=== PATIENT | male | born 1940 | race Caucasian/White ===

== ENCOUNTER 2016-09-23 20:37 | Emergency (ER) | payer OTHER ==
[2016-09-23 20:46] VITALS: RESP 16
--- NOTE | 2016-09-23 20:58 | CPEKG ---
Heart Rate: 70 RR Interval: 857 P-R Interval: 180 QRSD Interval: 94 QT Interval: 416 QTC Interval: 449 P Bridgeton: 16 QRS Bridgeton: -7 T Wave Bridgeton: 21 EKG Severity - NORMAL ECG - EKG Impression: SINUS RHYTHM Electronically Signed By: Nam Sebastian 23-Sep-2016 21:26:11
[2016-09-23] MEDS ORDERED: DEXAMETHASONE 10 MG/ML VIAL IVP ONE (21:22)
[2016-09-23] MEDS ORDERED: METOCLOPRAMIDE 10 MG/2 ML VIAL IVP ONE (21:22)
[2016-09-23] MEDS ORDERED: HYDROmorphONE/DILAUDID 1 MG/ML SYR IVP ONE (21:22)
[2016-09-23] MEDS ORDERED: NS 1,000 ML IV ONE (21:22)
[2016-09-23] MEDS ORDERED: MECLIZINE HCL 25 MG TAB PO ONE (21:23)
--- NOTE | 2016-09-23 21:25 | EDPHY ---
H & P Stated Complaint: ARAIZA and dizzy X 8 hours Source: Patient Exam Limitations: No limitations - Personal History Current Tetanus/Diphtheria Vaccine: Yes Current Tetanus Diphtheria and Acellular Pertussis (TDAP): Yes Tetanus Vaccine Date: < 10 YEARS - Medical/Surgical History Hx Asthma: No Hx Chronic Respiratory Disease: No Hx Diabetes: No Hx Cardiac Disease: No Hx Renal Disease: No Hx Cirrhosis: No Hx Alcoholism: No Hx HIV/AIDS: No Hx Splenectomy or Spleen Trauma: No Other PMH: DIVERTICULITITS, back surgery, HTN - Family History Significant Family History: No pertinent family hx - Social History Smoking Status: Former smoker Alcohol Use: Sober Drug Use: None Time Seen by Provider: 09/23/16 21:14 HPI/ROS: CHIEF COMPLAINT: Headache, vertigo HISTORY OF PRESENT ILLNESS: The patient is a 76-year-old man with a history of prostate cancer remotely who comes to the emergency department complaining of a headache and vertigo that began this morning after going to the bathroom. It has been constant throughout the day and mild. He states that it is 4/10. He has some photophobia. He does not frequently have headaches and he has never had migraines. He does not have any focal weakness or numbness. His states that he does have imbalance with ambulating. He does not have difficulty with cerebellar exam in bed. No GI symptoms. No chest pain. No shortness of breath. He denies any recent trauma. No fevers or recent infections. No history of stroke. REVIEW OF SYSTEMS: Constitutional: denies: chills, fever, recent illness, recent injury EENTM: denies: blurred vision, double vision, nose congestion Respiratory: denies: cough, shortness of breath Cardiac: denies: chest pain, irregular heart rate, lightheadedness, palpitations Gastrointestinal/Abdominal: denies: abdominal pain, diarrhea, nausea, vomiting, blood streaked stools Genitourinary: denies: dysuria, frequency, hematuria, pain Musculoskeletal: denies: joint pain, muscle pain Skin: denies: lesions, rash, jaundice, bruising Neurological: See HPI denies: numbness, paresthesia, tingling, weakness Hematologic/Lymphatic: denies: blood clots, easy bleeding, easy bruising Immunologic/allergic: denies: HIV/AIDS, transplant EXAM: GENERAL: Well-appearing, well-nourished and in no acute distress. HEAD: Atraumatic, normocephalic. EYES: Nystagmus with fast component to the right, Pupils equal round and reactive to light, extraocular movements intact, sclera anicteric, conjunctiva are normal. ENT: TMs normal, nares patent, oropharynx clear without exudates. Moist mucous membranes. NECK: Normal range of motion, supple without lymphadenopathy or JVD. LUNGS: Breath sounds clear to auscultation bilaterally and equal. No wheezes rales or rhonchi. HEART: Regular rate and rhythm without murmurs, rubs or gallops. ABDOMEN: Soft, nontender, normoactive bowel sounds. No guarding, no rebound. No masses appreciated. BACK: No CVA tenderness, no spinal tenderness, step-offs or deformities EXTREMITIES: Normal range of motion, no pitting or edema. No clubbing or cyanosis. NEUROLOGICAL: Cranial nerves II through XII grossly intact. Normal speech, normal gait. 5/5 strength, normal movement in all extremities, normal sensation , vertigo at baseline, does not fatigue. Normal cerebellar exam, normal reflexes PSYCH: Normal mood, normal affect. SKIN: Warm, dry, normal turgor, no visible rashes or lesions. (Nam Sebastian) Constitutional: Initial Vital Signs Temperature (C) 36.3 C 09/23/16 20:43 Heart Rate 73 09/23/16 20:43 Respiratory Rate 16 09/23/16 20:43 Blood Pressure 141/100 H 09/23/16 20:43 O2 Sat (%) 95 09/23/16 20:43 O2 Delivery Mode Room Air Allergies/Adverse Reactions: No Known Allergies Allergy (Verified 09/23/16 20:43) Home Medications: Medication Instructions Recorded Amlodipine 02/28/15 Asa 02/28/15 Hctz 02/28/15 Simvastatin 02/28/15 Medical Decision Making - Diagnostics EKG Interpretation: An EKG obtained and was read and documented in trace view. Please see trace view for full reading and report. Sinus rhythm, no acute ischemic changes ( Nam Sebastian) ED Course/Re-evaluation: 2:00 a.m.- I received sign-out on this patient from Dr. Sebastian at approximately 11:45 p.m.. The patient has been stable throughout my shift. MRI was performed and was generally negative for any central cause of vertigo such as posterior circulation ischemia or mass. We plan to discharge the patient. One of our technicians walked him through the department and he walks with a steady gait. He is anxious to go home and will be discharged. I have given him instructions to drink plenty of fluids. (Yessica Beatty) 10:43 p.m. the patient's headache is gone but he has persistent vertigo. He continues to have nystagmus that does not fatigue. I will order an MRI to evaluate further. (Nam Sebastian) Differential Diagnosis: Partial list of the Differential diagnosis considered include but were not limited to; benign peripheral vertigo, central vertigo, ischemia and although unlikely based on the history and physical exam, I also considered infection trauma, tumor. (Nam Sebastian) - Data Points Laboratory Results: Laboratory Results 09/23/16 21:24 09/23/16 21:24 Medications Given: Discontinued Medications Dexamethasone (Decadron Injection) 10 mg IVP EDNOW ONE Stop: 09/23/16 21:23 Last Admin: 09/23/16 21:40 Dose: 10 mg Hydromorphone HCl (Dilaudid) 0.5 mg IVP EDNOW ONE Stop: 09/23/16 21:23 Last Admin: 09/23/16 21:40 Dose: 0.5 mg Sodium Chloride (Ns) 1,000 mls @ 0 mls/hr IV ONCE ONE PRN Reason: Wide Open Stop: 09/23/16 21:23 Last Admin: 09/23/16 21:40 Dose: 1,000 mls Meclizine HCl (Meclizine Hcl) 50 mg PO EDNOW ONE Stop: 09/23/16 21:24 Last Admin: 09/23/16 21:40 Dose: 50 mg Metoclopramide HCl (Reglan Injection) 10 mg IVP EDNOW ONE Stop: 09/23/16 21:23 Last Admin: 09/23/16 21:40 Dose: 10 mg Departure - Departure Disposition: Home, Routine, Self-Care Clinical Impression: Peripheral vertigo Qualifiers: Laterality: right Qualified Code(s): H81.391 - Other peripheral vertigo, right ear Condition: Good Instructions: Vertigo (ED) Additional Instructions: Please make sure to drink plenty of fluids and get rest. You can take meclizine or Benadryl as needed for the dizziness. These are available over-the -counter. Please return to the emergency room if your worse in any way. Referrals: UNKNOWN,PCP [Other] - As per Instructions
[2016-09-23 21:28] LABS: % IMMATURE GRANULYOCYTES 0.2 % (0.0-1.1); ABSOLUTE IMMATURE GRANULOCYTES 0.02 10^3/uL (0.00-0.10); ADD DIFF? NO; ADD MORPH? NO; ADD SCAN? NO; ATYPICAL LYMPHOCYTE FLAG 0 (0-99); FRAGMENT RBC FLAG 0 (0-99); HEMATOCRIT 47.5 % (40.0-51.0); LEFT SHIFT FLG 0 (0-99); LIPEMIA HEMOLYSIS FLAG 80 (0-99); MEAN CELL HEMOGLOBIN 30.3 pg (27.9-34.1); MEAN CELL HEMOGLOBIN CONCENTR. 33.7 g/dL (32.4-36.7); MEAN PLATELET VOLUME 10.1 fL (8.7-11.7); PLATELET CLUMPS FLAG 0 (0-99); PLATELET COUNT 233 10^3/uL (150-400); RED BLOOD CELL COUNT 5.28 10^6/uL (4.40-6.38); RED CELL DISTRIBUTION WIDTH 13.3 % (11.5-15.2)
[2016-09-23 21:37] LABS: ANION GAP 12 mEq/L (8-16); CALCIUM 9.7 mg/dL (8.5-10.4); CARBON DIOXIDE 23 mEq/l (22-31); CHLORIDE 102 mEq/L (97-110); GLOMERULAR FILTRATION RATE > 60; GLUCOSE 120 mg/dL (70-100); SODIUM 137 mEq/L (134-144)
[2016-09-23 23:14] VITALS: O2SAT 91
[2016-09-23] MEDS ORDERED: GADOBUTROL 10 ML VIAL IVP ONE (23:32)
[2016-09-24 02:40] VITALS: BP 125/83; PULSE 73; TEMP 97.9
== END 2016-09-24 02:40 | disposition home or self-care (01) ==
DX: H81.391 Other peripheral vertigo, right ear (principal); I10 Essential (primary) hypertension; Z87.891 Personal history of nicotine dependence
CPT/HCPCS: 70450; 70544; 70548; 70553; 93005; 96361; 96374; 96375; 99285; A9585; J1170; J2765

== ENCOUNTER → 2017-06-04 | Outpatient (CLI) | payer OTHER | LOC: FIMAGING 12:19 | PROVIDERS: ATTEND Internal Medicine | DX: K57.30 Diverticulosis of large intestine without perforation or abscess without bleeding (principal); K76.0 Fatty (change of) liver, not elsewhere classified; K44.9 Diaphragmatic hernia without obstruction or gangrene; N28.1 Cyst of kidney, acquired; K80.20 Calculus of gallbladder without cholecystitis without obstruction ==

== ENCOUNTER 2017-09-08 15:44 | Emergency (ER) | payer OTHER ==
[2017-09-08 15:49] VITALS: BP 140/76
[2017-09-08] MEDS ORDERED: TDAP ADULT 0.5 ML INJ (BOOSTRIX) IM ONE (16:16)
--- NOTE | 2017-09-08 16:17 | EDPHY ---
H & P Smoking Status: Former smoker Time Seen by Provider: 09/08/17 16:11 HPI/ROS: HPI Left arm laceration. 77-year-old male by private vehicle with his . This patient was using an angle terrazzo grinder when it popped out of his hand glanced against his left mid dorsal forearm causing a laceration. He denies any loss of sensation or weakness distal to this wound. He does not recall the last time he had a tetanus shot. He has no other complaints. ROS: Constitutional: No fever, no chills. No weakness. Musculoskeletal: No back pain. No neck pain. As above. Skin: No rashes. As above. Neurological: No focal weakness or altered sensation. Past medical history: Diverticulitis, back surgery, hypertension. Social history: Nonsmoker. Here with his . Social alcohol. Physical Exam: General Appearance: Alert, no distress. This patient is responding to questions appropriately and in full sentences. This patient appears well- hydrated and well-nourished. Eyes: Pupils equal and round no pallor or injection. No lid edema, erythema or injection. Left upper extremity exam: Significant for a 4 cm full-thickness laceration which is linear and to the fascia but does not appear to breach the fascia mid dorsal forearm. Extensor function is intact at the wrist and all digits of left upper extremity. Left upper extremity is neurovascularly intact. Please see wound care note for further details. Neurological: Motor sensory function is grossly intact. Cranial nerves are normal. Gait is normal. Skin: Warm and dry, no rashes. As above. Extremities are symmetrical. All joints range without pain or impingement. Psychiatric: No agitation. No depression. Database: EKG: Imaging: Procedures: Emergency department course: Vital signs reviewed. Patient given a Boostrix tetanus shot. Please see wound care note by physician assisted living assistant Liss Ralph. Wound care discussed with the patient. Follow-up and return to emergency department precautions reviewed. All of his questions were answered. He was discharged home in good condition with his . Differential Diagnosis: The differential diagnosis on this patient includes but is not limited to laceration to the left mid forearm. Tendon laceration, significant neurovascular injury, retained foreign body unlikely. This represents a partial list of diagnoses considered. These considerations are based on history , physical exam, past history, reassessment and diagnostic testing. (McCollester ,Debby B) Constitutional: Initial Vital Signs Temperature (C) 36.7 C 09/08/17 15:46 Heart Rate 87 09/08/17 15:46 Respiratory Rate 18 09/08/17 15:46 Blood Pressure 140/76 H 09/08/17 15:46 O2 Sat (%) 95 09/08/17 15:46 O2 Delivery Mode Room Air Allergies/Adverse Reactions: No Known Allergies Allergy (Verified 09/08/17 15:46) Home Medications: Medication Instructions Recorded Amlodipine 02/28/15 Asa 02/28/15 Hctz 02/28/15 Simvastatin 02/28/15 Medical Decision Making Procedures: I was asked by Dr. Debby Longo to repair left forearm laceration. Laceration repair. Verbal consent was obtained from the patient. The 4 cm laceration on the left forearm was anesthetized using 1% lidocaine with epinephrine. The wound was irrigated with saline, draped and explored to its base with a gloved finger. There were no deep structures involved. No tendon injury was identified. The wound was repaired with 4 0 Ethilon, 9 sutures. The wound repair was complex. The procedure was performed by myself. (Liss Medellin) - Data Points Medications Given: Discontinued Medications Diphtheria/Tetanus/Acell Pertussis (Boostrix) 0.5 ml IM .ONCE ONE Stop: 09/08/17 16:17 Last Admin: 09/08/17 16:23 Dose: 0.5 ml Departure - Departure Disposition: Home, Routine, Self-Care Clinical Impression: Laceration of left forearm Qualifiers: Encounter type: initial encounter Qualified Code(s): S51.812A - Laceration without foreign body of left forearm, initial encounter Condition: Good Instructions: Laceration (ED) Additional Instructions: Read and follow provided instructions. Sutures are to be removed in 12 days. Follow-up with your primary care physician in 2-3 days for re-evaluation and wound check. Ibuprofen dosin mg every 6 hours with meals for the next 3 days only. Take only as needed for pain. Return to the emergency department for worsening pain, discoloration, redness, drainage of pus, fever or other serious concerns. Referrals: NONE *PRIMARY CARE P,. [Primary Care Provider] - As per Instructions
== END 2017-09-08 16:50 | disposition home or self-care (01) ==
PROC: 0HQEXZZ Repair Left Lower Arm Skin, External Approach (ICD-10-PCS; principal; 2017-09-08)
DX: S51.812A Laceration without foreign body of left forearm, initial encounter (principal); I10 Essential (primary) hypertension; Z23 Encounter for immunization; W31.2XXA Contact with powered woodworking and forming machines, initial encounter; Y99.8 Other external cause status; Y93.89 Activity, other specified

== ENCOUNTER 2018-05-03 14:35 | Inpatient (IN) | payer OTHER ==
[2018-05-03] MEDS ORDERED: KETOROLAC 15 MG/1 ML SDV IVP ONE (14:56)
[2018-05-03] MEDS ORDERED: DEXAMETHASONE 4 MG/ML VIAL IVP ONE (14:56)
[2018-05-03] MEDS ORDERED: DIAZEPAM 5 MG/ML 1 ML SYR IVP ONE (14:56)
--- NOTE | 2018-05-03 15:03 | EDPHY ---
H & P Stated Complaint: Right sided back pain radiation to R buttock and R thigh Time Seen by Provider: 05/03/18 14:45 HPI/ROS: CHIEF COMPLAINT: Low back pain HISTORY OF PRESENT ILLNESS: Patient is a 77-year-old man with a history of chronic low back pain. He had a diskectomy laminectomy of L2-4, 20 years ago and 10 years ago had a left-sided lumbar nerve block by interventional Radiology. He states that his pain has been generally controlled until the last 2 weeks when he has had mild low back pain like a "band across the lower part of his back". Then today after walking to and from the bathroom he states the pain suddenly changed and went from a level of 2 to level of 9 and is radiating down his right gluteus area and right lateral thigh. It does not radiate below his knee. No weakness or numbness. he denies bowel or bladder abnormalities. He has been taking Advil and Flexeril at home at night without significant relief. Severity: Severe Modifying factors: Worsened by movement twisting or bending. Not worsened by weight-bearing REVIEW OF SYSTEMS: Constitutional: denies: chills, fever, recent illness, recent injury EENTM: denies: blurred vision, double vision, nose congestion Respiratory: denies: cough, shortness of breath Cardiac: denies: chest pain, irregular heart rate, lightheadedness, palpitations Gastrointestinal/Abdominal: denies: abdominal pain, diarrhea, nausea, vomiting, blood streaked stools Genitourinary: denies: dysuria, frequency, hematuria, pain Musculoskeletal: See HPI Skin: denies: lesions, rash, jaundice, bruising Neurological: denies: headache, numbness, paresthesia, tingling, dizziness, weakness Hematologic/Lymphatic: denies: blood clots, easy bleeding, easy bruising Immunologic/allergic: denies: HIV/AIDS, transplant 10 systems reviewed and negative except as noted EXAM: GENERAL: Well-appearing, well-nourished and in no acute distress. HEAD: Atraumatic, normocephalic. EYES: Pupils equal round and reactive to light, extraocular movements intact, sclera anicteric, conjunctiva are normal. ENT: TMs normal, nares patent, oropharynx clear without exudates. Moist mucous membranes. NECK: Normal range of motion, supple without lymphadenopathy or JVD. LUNGS: Breath sounds clear to auscultation bilaterally and equal. No wheezes rales or rhonchi. HEART: Regular rate and rhythm without murmurs, rubs or gallops. ABDOMEN: Soft, nontender, normoactive bowel sounds. No guarding, no rebound. No masses appreciated. BACK: Mid low back pain radiating to the right gluteus and right lateral thigh. No tenderness. Pain with movement or twisting. EXTREMITIES: Normal range of motion, no pitting or edema. No clubbing or cyanosis. NEUROLOGICAL: Cranial nerves II through XII grossly intact. Normal speech, can ambulate but with pain. 5/5 strength in been, normal movement in all extremities but with pain with movement of the right leg, normal sensation, normal reflexes PSYCH: Normal mood, normal affect. SKIN: Warm, dry, normal turgor, no visible rashes or lesions. Source: Patient, EMS Exam Limitations: No limitations - Personal History Current Tetanus Diphtheria and Acellular Pertussis (TDAP): No Tetanus Vaccine Date: < 10 YEARS - Medical/Surgical History Hx Asthma: No Hx Chronic Respiratory Disease: No Hx Diabetes: No Hx Cardiac Disease: Yes Hx Renal Disease: No Hx Cirrhosis: No Hx Alcoholism: No Hx HIV/AIDS: No Hx Splenectomy or Spleen Trauma: No Other PMH: DIVERTICULITITS, L2-3 for laminectomy and diskectomy, HTN - Family History Significant Family History: No pertinent family hx - Social History Smoking Status: Former smoker Alcohol Use: Sober Drug Use: None Constitutional: Initial Vital Signs Heart Rate 81 05/03/18 14:39 Respiratory Rate 18 05/03/18 14:39 O2 Sat (%) 94 05/03/18 14:39 O2 Delivery Mode Nasal Cannula Allergies/Adverse Reactions: No Known Allergies Allergy (Verified 05/03/18 14:43) Home Medications: Medication Instructions Recorded Albuterol [Proventil Inhaler HFA 1 - 2 puffs IH Q4HRS PRN 05/03/18 (*)] Aspirin EC [Aspirin EC 81 mg (*)] 81 mg PO HS 05/03/18 Cholecalciferol (Vitamin D3) 2,000 unit PO DAILY 05/03/18 [Vitamin D3] Cyclobenzaprine [Cyclobenzaprine 5 mg PO HS 05/03/18 HCl] Herbals/Supplements -Info Only 1 ea PO DAILY 05/03/18 Hydrochlorothiazide [HCTZ (*)] 25 mg PO DAILY 05/03/18 Ibuprofen [Motrin (*)] 400 mg PO BID 05/03/18 Multivitamins [Multivitamin (*)] 1 each PO DAILY 05/03/18 Holland-3 Fatty Acids [Fish Oil 1000 1,000 mg PO DAILY 05/03/18 mg (*)] Simvastatin 40 mg PO HS 05/03/18 Ubidecarenone [Co Q-10 200 mg] 200 mg PO DAILY 05/03/18 Vitamin B Complex [Vitamin B 1 each PO DAILY 05/03/18 Complex (OTC)] amLODIPine BESYLATE [Amlodipine 10 mg PO DAILY 05/03/18 Besylate] Medical Decision Making - Diagnostics Imaging Results: Imaging Impressions Lumbar Spine MRI 05/03/18 15:32 Impression: 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 The level of most severe central spinal canal narrowing is at L3-L4. Please see detailed description by level above. Results called and discussed with Dr. Nam Sebastian on May 03, 2018 at 1637 hours. Imaging: Discussed imaging studies w/ weight caller Radiologist ED Course/Re-evaluation: We discussed our no narcotic policy in the setting of chronic nontraumatic pain upfront as well as our policy surrounding emergent MRIs. The patient does not have any focal weakness or numbness incontinence or focal deficits. The patient and his were of course frustrated. He expected both of these things when he came to the ER. 3:30 p.m. the patient is very angry about not receiving narcotics and about not being able to receive an MRI. We discussed other options. Ultimately agreed to try to obtain an MRI on this Saturday afternoon because the patient's pain is severely worsened today. Patient asked to be given general anesthesia for the MRI. I told him that this is not a possibility. 4:40 p.m. we discussed the patient's MRI. Despite multiple medications his pain is not controlled at all. I will began to give him narcotics and recommended admission to the hospital for pain control. He is not able to sit up in bed or get out of bed. 4:45 p.m. I discussed the case with Dr. Sapp who will admit. Differential Diagnosis: Partial list of the Differential diagnosis considered include but were not limited to; radiculopathy, muscle strain, degenerative disc disease and although unlikely based on the history and physical exam, I also considered cauda equina, infection, fracture. - Data Points Medications Given: Acetaminophen (Tylenol) 1,000 mg PO Q8H [facility] Stop: 10/30/18 18:14 Last Admin: 05/03/18 18:42 Dose: 1,000 mg Miscellaneous Medication (Icy Hot Lidocaine/Menthol 4%/1% Patch) 1 patch TD DAILY TOBIAS Stop: 10/30/18 17:59 Last Admin: 05/03/18 18:43 Dose: Not Given Discontinued Medications Dexamethasone (Decadron Injection) 8 mg IVP EDNOW ONE Stop: 05/03/18 14:57 Last Admin: 05/03/18 15:18 Dose: 8 mg Diazepam (Valium) 5 mg IVP EDNOW ONE Stop: 05/03/18 14:57 Last Admin: 05/03/18 15:13 Dose: 5 mg Gabapentin (Neurontin) 600 mg PO EDNOW ONE Stop: 05/03/18 15:35 Last Admin: 05/03/18 15:40 Dose: 600 mg Haloperidol Lactate (Haldol Injection) 5 mg IVP EDNOW ONE Stop: 05/03/18 15:35 Last Admin: 05/03/18 15:40 Dose: 5 mg Hydromorphone HCl (Dilaudid) 1 mg IVP EDNOW ONE Stop: 05/03/18 16:41 Last Admin: 05/03/18 16:44 Dose: 1 mg Ketamine HCl (Ketamine) 15 mg IVP EDNOW ONE Stop: 05/03/18 14:57 Last Admin: 05/03/18 15:35 Dose: 15 mg Ketamine HCl (Ketamine) 15 mg IVP EDNOW ONE Stop: 05/03/18 15:33 Last Admin: 05/03/18 15:43 Dose: Not Given Ketorolac Tromethamine (Toradol) 15 mg IVP EDNOW ONE Stop: 05/03/18 14:57 Last Admin: 05/03/18 15:18 Dose: 15 mg Departure - Departure Disposition: [facility] Clinical Impression: Intractable back pain Low back pain Qualifiers: Chronicity: unspecified Back pain laterality: right Sciatica presence: unspecified whether sciatica present Qualified Code(s): M54.5 - Low back pain Condition: Fair
[2018-05-03] MEDS: KETAMINE 200 MG/20 ML VIAL IVP ONE ×2 (15:14→15:35)
[2018-05-03] MEDS ORDERED: KETAMINE 500 MG/10 ML VIAL IVP ONE (15:32)
[2018-05-03] MEDS ORDERED: HALOPERIDOL LACT 5 MG/ML INJ IVP ONE (15:34)
[2018-05-03] MEDS ORDERED: GABAPENTIN 300 MG CAP PO ONE (15:34)
[2018-05-03] MEDS ORDERED: HYDROmorphONE/DILAUDID 2 MG/ML INJ IVP ONE (16:40)
[2018-05-03] MEDS ORDERED: ONDANSETRON DISINTEGRATING 4 MG TAB PO PRN (17:05)
[2018-05-03] MEDS ORDERED: ACETAMINOPHEN 325 MG TAB PO PRN (17:05)
[2018-05-03] MEDS ORDERED: ONDANSETRON 4 MG/2 ML VIAL IVP PRN (17:05)
[2018-05-03] MEDS ORDERED: ALBUTEROL 60 PUFFS/8 GM MDI IH PRN (17:29)
--- NOTE | 2018-05-03 17:37 | PDGENHP ---
<Nalini Felder - Last Filed: 05/03/18 17:59> History and Physical - Chief Complaint intractable back pain - History of Present Illness 77 y/o male with chronic lower back pain presents to the emergency room with intractable back pain. Onset was 2 weeks ago when he bent over to tie his shoe. 4 days ago, he began to take 2 tablets of Advil BID and Flexeril 5 mg HS with no relief. This morning as he was walking to and from the bathroom, the pain became so severe he needed to come to the emergency room. Pain is located right gluteus region and radiates to lateral right thigh. Moving aggravates it. Denies numbness, tingling, difficulty urinating or having bowel movements. No chest pains or shortness of breath. No nausea, vomiting or dizziness. 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 The most severe central spinal canal narrowing is at L3-L4. He was given multiple medications in the ED in attempt to alleviate his pain: dexamethasone, valium, gabapentin, haldol, dilaudid, and ketamine. After receiving those medications, he reports his pain is 7/10. He is being admitted for pain control and management. Past Medical/Surgical History 1. Diskectomy laminectomy of L2 (~1996) 2. Left-sided lumbar nerve block by interventional radiology (~2007) 3. Basal cell carcinoma (2011), MO[facility] 4. BPPV 5. CAD 6. DJD 7. Hyperlipidemia 8. Hypertension 9. Mild intermittent asthma 10. Nocturnal hypoxia 11. Prostate cancer s/p RP salvage radiation (~2011) 12. Tonsillectomy Social 1. Marries, lives with his Belkys 2. Former smoker. No illicit drug use. Rarely drinks alcohol History Information - Allergies/Home Medication List Allergies/Adverse Reactions: No Known Allergies Allergy (Verified 05/03/18 14:43) Home Medications: Albuterol [Proventil Inhaler HFA (*)] 1 - 2 puffs IH Q4HRS PRN 05/03/18 [Last Taken 05/03/18] Aspirin EC [Aspirin EC 81 mg (*)] 81 mg PO HS 05/03/18 [Last Taken 04/28/18] Cholecalciferol (Vitamin D3) [Vitamin D3] 2,000 unit PO DAILY 05/03/18 [Last Taken 04/30/18] Cyclobenzaprine [Cyclobenzaprine HCl] 5 mg PO HS 05/03/18 [Last Taken 05/02/18] Herbals/Supplements -Info Only 1 ea PO DAILY 05/03/18 [Last Taken Unknown] Hydrochlorothiazide [HCTZ (*)] 25 mg PO DAILY 05/03/18 [Last Taken 05/03/18] Ibuprofen [Motrin (*)] 400 mg PO BID 05/03/18 [Last Taken 05/03/18] Multivitamins [Multivitamin (*)] 1 each PO DAILY 05/03/18 [Last Taken 04/30/18] Ashuelot-3 Fatty Acids [Fish Oil 1000 mg (*)] 1,000 mg PO DAILY 05/03/18 [Last Taken 04/30/18] Simvastatin 40 mg PO HS 05/03/18 [Last Taken 05/02/18] Ubidecarenone [Co Q-10 200 mg] 200 mg PO DAILY 05/03/18 [Last Taken 04/30/18] Vitamin B Complex [Vitamin B Complex (OTC)] 1 each PO DAILY 05/03/18 [Last Taken 04/30/18] amLODIPine BESYLATE [Amlodipine Besylate] 10 mg PO DAILY 05/03/18 [Last Taken ] I have personally reviewed and updated: family history, medical history, social history, surgical history Past Medical History: See HPI list - Surgical History Additional surgical history: See HPI list - Family History Additional family history: Brother: DVT, Father with CAD and prostate CA, Mother with diabetes - Social History Smoking Status: Former smoker Alcohol Use: Rarely Drug Use: None Review of Systems Review of Systems: ROS: 10pt was reviewed & negative except for what was stated in HPI & below Constitutional: Reports: no symptoms EENMT: Reports: no symptoms Cardiac: Reports: no symptoms Respiratory: Reports: no symptoms Gastrointestinal: Reports: no symptoms Genitourinary: Reports: no symptoms Muscolosketal: Reports: back pain Skin: Reports: no symptoms Neurological: Reports: no symptoms Hematologic/Lymphatic: Reports: no symptoms Immunologic/Allergy: Reports: no symptoms Physical Exam Physical Exam: Imaging reviewed Temp Pulse Resp BP Pulse Ox 78 14 127/105 H 93 05/03/18 17:25 05/03/18 17:25 05/03/18 17:25 05/03/18 17:25 O2 (L/minute) 2 Constitutional: obese, uncomfortable Eyes: PERRL, anicteric sclera, EOMI Ears, Nose, Mouth, Throat: ears appear normal, no oral mucosal ulcers, dry mucous membranes, hard of hearing Cardiovascular: regular rate and rhythym, no murmur, rub, or gallop, No edema Peripheral Pulses: 2+: dorsalis-pedis (R) (Radial 2+), dorsalis-pedis (L) ( Radial 2+) Respiratory: no respiratory distress, no rales or rhonchi, clear to auscultation Gastrointestinal: normoactive bowel sounds, soft, non-tender abdomen Genitourinary: no bladder fullness, no bladder tenderness Skin: warm, normal color, no rashes or abrasions, no fluctuance, no induration, No mottled Musculoskeletal: other (BUE motor strength 5/5, refused testing of BLE) Neurologic: AAOx3, sensation intact bilaterally, CN II-XII Intact Psychiatric: interacting appropriately, not anxious, not encephalopathic, thought process linear Lymph, Heme, Immunologic: no cervical LAD, no supraclavicular LAD Assessment & Plan Plan: This is a 77 y/o male with history of chronic lower back pain who received back surgery approximately 20 years ago and a nerve block approximately 10 years ago. From then until now, he has been able to tolerate his back discomfort. Unfortunately, today was intense pain and he sought medical assistance for this intractable pain. 1. Lumbar radiculopathy -Conservative measures with hot/ice packs, positioning, pillows -Pain PO/IVP PRN; basic labwork pending to assess renal and hepatic function -Lidocaine patch -PT/OT to evaluate -Would consider possible IR consultation and intervention tomorrow if pain not controlled by morning 2. Hypertension -He may continue amlodipine and HCTZ 3. Asthma/nocturnal hypoxia -May use albuterol PRN -Will most likely need supplemental oxygen @[facility] -Perform room air challenge tomorrow 4. Hyperlipidemia: continue simvastatin Diet: Regular Code: Full VTE ppx: SCDs Dispo: Admit to obs <Aydin Sapp - Last Filed: 05/03/18 18:11> History and Physical - History of Present Illness Review of Systems Review of Systems: Physical Exam Physical Exam: Temp Pulse Resp BP Pulse Ox 78 14 127/105 H 93 05/03/18 17:25 05/03/18 17:25 05/03/18 17:25 05/03/18 17:25 O2 (L/minute) 2 Assessment & Plan Assessment: Intractable back pain (Acute) Low back pain (Acute) Plan: I have reviewed vitals, labs, imaging and personally examined the patient. Agree with plan outlined above by Katherine Felder NP. Please see separate note for additional details.
--- NOTE | 2018-05-03 18:12 | HOSPPROG ---
Hospitalist Progress Note Assessment/Plan: Case discussed with Katherine Felder NP and I agree with her plan with the following exceptions: Briefly 77yo M currently experiencing acute exacerbation of chronic low back pain. Had discectomy/laminectomy at L2 about 20 years ago. Had ANSON about 10 years ago with excellent relief. Overall usually does well managing his pain with PRN nsaids and muscle relaxants but pain severe over last few days. First noted after trying to tie shoe. Pain in right lower back, right buttock and right lateral thigh. No shooting pain down legs or leg weakness. Neuro exam intact. MRI of lumbar spine without acute neurologic compromise. He received significant amount of medications in the ED. He is being admitted for further pain control and inability to safely ambulate. Assessment/Plan: 1. Acute right low back pain: Doesn't have classic radicular symptoms. Suspect MSK strain. - Schedule tylenol, PRN toradol (checking renal function), flexeril, PRN oxycodone and dilaudid - Lidocaine patch, heat pad - Pulse ox with centrally acting meds - PT/OT - Could consider IR consult, but I'm not convinced this is radicular/nerve related so may not benefit as much from ANSON 2. HTN: BP ok. Home meds. 3. HLD: On statin. Dispo: Admit under observation Objective: Vital Signs Temp Pulse Resp BP Pulse Ox 36.6 C 84 18 149/100 H 92 05/03/18 18:06 05/03/18 18:06 05/03/18 18:06 05/03/18 18:06 05/03/18 18:06 ICD10 Worksheet Patient Problems: Problems Problem Status Onset Intractable back pain Acute Low back pain Acute Peripheral vertigo Acute
[2018-05-03] MEDS: ACETAMINOPHEN 500 MG TAB PO SCH (18:42)
[2018-05-03] MEDS: LIDOCAINE 4%/MENTHOL 1% PATCH TD SCH (18:43)
[2018-05-03 19:00] LABS: PLATELET COUNT 203 10^3/uL (150-400)
[2018-05-03] MEDS: ASPIRIN EC 81 MG TAB PO SCH (19:52)
[2018-05-03] MEDS: ATORVASTATIN CALCIUM 20 MG TAB PO SCH (19:53)
[2018-05-03] MEDS: PATCH REMOVAL 1 EA PATCH TD SCH (19:53)
[2018-05-03] MEDS: oxyCODONE IR 5 MG TAB PO PRN (23:34)
[2018-05-03] MEDS: CYCLOBENZAPRINE 10 MG TAB PO PRN (23:34)
[2018-05-04] MEDS: ACETAMINOPHEN 500 MG TAB PO SCH ×3 (02:51→18:09)
[2018-05-04] MEDS: KETOROLAC 15 MG/1 ML SDV IVP PRN ×2 (04:49→21:59)
[2018-05-04] MEDS: oxyCODONE IR 5 MG TAB PO PRN ×3 (04:49→21:59)
[2018-05-04] MEDS: HYDROCHLOROTHIAZIDE 25 MG TAB PO SCH (09:22)
[2018-05-04] MEDS: amLODIPine BESYLATE 5 MG TAB PO SCH (09:22)
[2018-05-04] MEDS: CHOLECALCIFEROL VIT D3 2,000 UNITS TAB/CAP PO SCH (09:22)
[2018-05-04] MEDS: LIDOCAINE 4%/MENTHOL 1% PATCH TD SCH (09:25)
[2018-05-04] MEDS ORDERED: DEXAMETHASONE 10 MG/ML VIAL IVP ONE (10:50)
[2018-05-04] MEDS ORDERED: DEXAMETHASONE 4 MG/ML VIAL IVP ONE (11:15)
--- NOTE | 2018-05-04 13:09 | ASMTCMCOM ---
CM Note CM Note Notes: Pt is a 77 yo M presents with acute right low back pain. Has history of HTN &HLD. PT/OT ordered, evals pending. Pt lives in [place] with . CM to follow to determine discharge needs. Plan: TBD Date Signed: 05/04/2018 01:09 PM Electronically Signed By:ELI Mcfarland
--- NOTE | 2018-05-04 14:48 | HOSPPROG ---
Hospitalist Progress Note Assessment/Plan: The patient is a 77-year-old male with PMH lumbar surgery, lumbar stenosis who was admitted for acute, severe intractable back pain with radiation to right thigh. This patient is new to me. Reviewed patient's chart/records for this visit. ASSESSMENT/PLAN: Acute lumbar back pain, severe L3-L4 central canal stenosis History of lumbar spine surgery Obesity CAD DJD HTN, worse 2/2 pain HLD Asthma Nocturnal hypoxia H/o prostate CA -prn analgesics. -Continue home meds. -Discussed w/ IR -- they can do a spinal steroid injection in AM. -Dexamethasone to help w/ cord swelling. VTE prophylaxis: Hold Lovenox for procedure in AM Code Status: Full code Status: Changing to Inpatient for greater than 2 midnight stay because of continued intractable pain, inability to move/walk, in need for procedure tomorrow with Interventional Radiology. Disposition: Med surge with discharge anticipated in the next 1-2 days. ____ SUBJECTIVE: Today pt continues to have pain, hurts to move at all. OBJECTIVE: Physical Exam: General: The patient is an obese male who is alert and in no acute distress. HEENT: normocephalic, extraocular movements intact, conjunctivae clear. Mucous membranes moist. Neck: trachea midline, no visible masses. CV: +S1/S2, RRR, no MRG. Resp: unlabored, CTAB no RRW. Abd: soft and nondistended. Bowel sounds present. Musculoskeletal: Normal muscle tone/bulk. +R paraspinal lumbar tenderness, R gluteal tenderness. Neuro: cranial nerves II XII grossly intact. Intact gross motor and sensory function. Psych: Appropriate mood and appropriate affect. Skin: No pallor. No petechiae. Heme/lymph: No peripheral edema at bilateral lower extremities. Labs/Imaging/Other Tests: Personally reviewed/interpreted. Objective: Vital Signs Temp Pulse Resp BP Pulse Ox 36.4 C 87 18 121/91 H 93 05/04/18 12:01 05/04/18 12:01 05/04/18 12:01 05/04/18 12:01 05/04/18 12:01 Laboratory Results 05/03/18 18:43 05/03/18 18:43 05/03/18 05/04/18 05/05/18 05:59 05:59 05:59 Intake Total 120 Output Total 350 Balance -230 - Time Spent With Patient Time Spent with Patient: greater than 35 minutes Time Spent with Patient: Greater than 35 minutes spent on this patients care, greater than 50% of time spent counseling, educating, and coordinating care regarding the above mentioned plan. ICD10 Worksheet Patient Problems: Problems Problem Status Onset Intractable back pain Acute Low back pain Acute Peripheral vertigo Acute
[2018-05-04] MEDS: ASPIRIN EC 81 MG TAB PO SCH (20:08)
[2018-05-04] MEDS: CYCLOBENZAPRINE 10 MG TAB PO PRN (20:08)
[2018-05-04] MEDS: PATCH REMOVAL 1 EA PATCH TD SCH (20:09)
[2018-05-04] MEDS: ATORVASTATIN CALCIUM 20 MG TAB PO SCH (20:09)
[2018-05-04] MEDS ORDERED: DIAZEPAM 5 MG TAB PO ONE (22:42)
[2018-05-05] MEDS: ACETAMINOPHEN 500 MG TAB PO SCH ×3 (04:05→18:32)
[2018-05-05 05:03] LABS: PLATELET COUNT 234 10^3/uL (150-400)
[2018-05-05] MEDS: oxyCODONE IR 5 MG TAB PO PRN ×5 (07:57→21:50)
[2018-05-05] MEDS: KETOROLAC 15 MG/1 ML SDV IVP PRN ×2 (07:58→15:24)
[2018-05-05] MEDS: CYCLOBENZAPRINE 10 MG TAB PO PRN ×2 (07:58→15:22)
[2018-05-05] MEDS ORDERED: DIAZEPAM 5 MG/ML 1 ML SYR IVP ONE (08:29)
[2018-05-05] MEDS ORDERED: DIAZEPAM 5 MG TAB PO ONE (08:41)
[2018-05-05] MEDS: HYDROmorphONE/DILAUDID 1 MG/ML INJ IVP PRN ×2 (08:57→15:34)
[2018-05-05] MEDS ORDERED: TRIAMCINOLONE ACETONIDE 200 MG/5 ML MDV IM ONE ×2 (09:48→10:24)
[2018-05-05] MEDS ORDERED: NALOXONE HCL 0.4 MG/ML INJ IVP PRN (09:50)
[2018-05-05] MEDS ORDERED: MIDAZOLAM 2 MG/2 ML VIAL IVP PRN (09:50)
[2018-05-05] MEDS ORDERED: FLUMAZENIL 0.5 MG/5 ML MDV IVP PRN (09:50)
[2018-05-05] MEDS ORDERED: fentaNYL 100 MCG/2 ML INJ IVP PRN (09:50)
[2018-05-05] MEDS ORDERED: fentaNYL 100 MCG/2 ML INJ ONE (09:52)
[2018-05-05] MEDS ORDERED: MIDAZOLAM 2 MG/2 ML VIAL ONE (09:52)
--- NOTE | 2018-05-05 09:57 | PDMN ---
Medical Necessity Medical necessity: [facility] M63 Back Pain: 77 yo w/ intractable back pain. Dx w/ lumbar radiculopathy, initially obs status for tx w/ conservative measures but changing to Inpatient for greater than 2 midnight stay because of continued intractable pain, inability to move/walk, in need for procedure tomorrow with Interventional Radiology. Pt cont w/ severe pain requiring IV opioids and IV NSAIDS for pain management, PT/OT to see. Change to IP status 05/04/18@1447 per MD order.
[2018-05-05] MEDS ORDERED: NS 1,000 ML IV SCH (10:00)
--- NOTE | 2018-05-05 10:05 | PDPROPOC ---
Sedation Plan of Care ASA Classification: ASA 2 Mallampati Score: Class 3 Mallampati Reference Image:
[2018-05-05] MEDS ORDERED: IOPAMIDOL (ISOVUE-M 300) 15 ML VIAL ONE (10:42)
[2018-05-05] MEDS: CHOLECALCIFEROL VIT D3 2,000 UNITS TAB/CAP PO SCH (13:27)
[2018-05-05] MEDS: HYDROCHLOROTHIAZIDE 25 MG TAB PO SCH (13:27)
[2018-05-05] MEDS: amLODIPine BESYLATE 5 MG TAB PO SCH (13:29)
[2018-05-05] MEDS: LIDOCAINE 4%/MENTHOL 1% PATCH TD SCH (13:31)
[2018-05-05] MEDS ORDERED: BISACODYL 10 MG SUPP PR PRN (13:38)
[2018-05-05] MEDS ORDERED: LACTULOSE 20 GM/30 ML UDCUP PO PRN (13:38)
--- NOTE | 2018-05-05 17:41 | HOSPPROG ---
Hospitalist Progress Note Assessment/Plan: The patient is a 77-year-old male with PMH lumbar surgery, lumbar stenosis who was admitted for acute, severe intractable back pain with radiation to right thigh. ASSESSMENT/PLAN: Acute lumbar back pain, severe L3-L4 central canal stenosis Muscle spasms History of lumbar spine surgery Obesity CAD DJD HTN, worse 2/2 pain HLD Asthma Nocturnal hypoxia H/o prostate CA Insomnia -prn analgesics. -Continue home meds. -I have discussed w/ IR. Pt underwent IR injection today-- still w/ pain/muscle spasms. -Gave extra Valium today. VTE prophylaxis: Lovenox. Code Status: Full code Status: Inpatient for greater than 2 midnight stay because of continued intractable pain, inability to move/walk comfortably. Disposition: Med surge with discharge anticipated in the next 1-2 days. ____ SUBJECTIVE: Today pt continues to have pain following the spinal steroid injection. OBJECTIVE: Physical Exam: General: The patient is an obese male who is alert and in no acute distress. HEENT: normocephalic, extraocular movements intact, conjunctivae clear. Mucous membranes moist. Neck: trachea midline, no visible masses. CV: +S1/S2, RRR, no MRG. Resp: unlabored, CTAB no RRW. Abd: soft and nondistended. Bowel sounds present. Musculoskeletal: Normal muscle tone/bulk. Neuro: cranial nerves II - XII grossly intact. Intact gross motor and sensory function. Psych: Appropriate mood and appropriate affect. Skin: No pallor. No petechiae. Heme/lymph: No peripheral edema at bilateral lower extremities. Labs/Imaging/Other Tests: Personally reviewed/interpreted. Objective: Vital Signs Temp Pulse Resp BP Pulse Ox 36.6 C 76 16 127/102 H 93 05/05/18 16:00 05/05/18 16:00 05/05/18 16:00 05/05/18 17:29 05/05/18 16:00 Laboratory Results 05/05/18 04:40 05/05/18 04:40 05/04/18 05/05/18 05/06/18 05:59 05:59 05:59 Intake Total 2900 125 Output Total 175 Balance 2900 -50 - Time Spent With Patient Time Spent with Patient: greater than 35 minutes Time Spent with Patient: Greater than 35 minutes spent on this patients care, greater than 50% of time spent counseling, educating, and coordinating care regarding the above mentioned plan. ICD10 Worksheet Patient Problems: Problems Problem Status Onset Intractable back pain Acute Low back pain Acute Peripheral vertigo Acute
[2018-05-05] MEDS: PATCH REMOVAL 1 EA PATCH TD SCH (21:34)
[2018-05-05] MEDS: ATORVASTATIN CALCIUM 20 MG TAB PO SCH (21:45)
[2018-05-05] MEDS: SENNOSIDES/DOCUSATE SODIUM TAB PO SCH (21:45)
[2018-05-05] MEDS: ASPIRIN EC 81 MG TAB PO SCH (21:59)
[2018-05-06] MEDS: ACETAMINOPHEN 500 MG TAB PO SCH ×3 (04:16→21:15)
[2018-05-06] MEDS: amLODIPine BESYLATE 5 MG TAB PO SCH (08:24)
[2018-05-06] MEDS: CYCLOBENZAPRINE 10 MG TAB PO PRN ×2 (08:25→19:15)
[2018-05-06] MEDS: HYDROCHLOROTHIAZIDE 25 MG TAB PO SCH (08:25)
[2018-05-06] MEDS: CHOLECALCIFEROL VIT D3 2,000 UNITS TAB/CAP PO SCH (08:25)
[2018-05-06] MEDS: KETOROLAC 15 MG/1 ML SDV IVP PRN ×2 (08:26→13:21)
[2018-05-06] MEDS: SENNOSIDES/DOCUSATE SODIUM TAB PO SCH ×2 (08:27→21:13)
[2018-05-06] MEDS: LIDOCAINE 4%/MENTHOL 1% PATCH TD SCH (08:27)
[2018-05-06] MEDS: oxyCODONE IR 5 MG TAB PO PRN ×3 (08:41→19:15)
--- NOTE | 2018-05-06 13:13 | HOSPPROG ---
Hospitalist Progress Note Assessment/Plan: The patient is a 77-year-old male with PMH lumbar surgery, lumbar stenosis who was admitted for acute, severe intractable back pain with radiation to right thigh. ASSESSMENT/PLAN: Acute lumbar back pain, s/p steroid injection POD 1 L3-L4 central canal stenosis Muscle spasms History of lumbar spine surgery Obesity CAD DJD HTN, worse 2/2 pain HLD Asthma Nocturnal hypoxia H/o prostate CA Insomnia -prn analgesics, heat. -Continue home meds. -PT/OT. They will eval today. -Discussed NSG consult, but pt does not want surgery if possible. Last time he got a steroid injection with Dr. Fadi tellez, it took about 3 days for pain relief to occur. He is hoping for the same this time. VTE prophylaxis: Lovenox. Code Status: Full code Status: Inpatient Disposition: Med surge with discharge anticipated in the next 1-2 days. ____ SUBJECTIVE: Today pt continues to have pain following the spinal steroid injection, slightly improved OBJECTIVE: Physical Exam: General: The patient is an obese male who is alert and in no acute distress. HEENT: normocephalic, extraocular movements intact, conjunctivae clear. Mucous membranes moist. Neck: trachea midline, no visible masses. Resp: unlabored. Abd: soft and nondistended. Musculoskeletal: Normal muscle tone/bulk. +tight R gluteal muscles. Neuro: cranial nerves II - XII grossly intact. Intact gross motor and sensory function. Psych: Appropriate mood and appropriate affect. Skin: No pallor. Labs/Imaging/Other Tests: Personally reviewed/interpreted. Objective: Vital Signs Temp Pulse Resp BP Pulse Ox 36.5 C 74 16 125/84 H 92 05/06/18 12:00 05/06/18 12:00 05/06/18 12:00 05/06/18 12:00 05/06/18 12:00 Laboratory Results 05/05/18 04:40 05/05/18 04:40 05/05/18 05/06/18 05/07/18 05:59 05:59 05:59 Intake Total 2900 179 Output Total 925 Balance 2900 -856 - Time Spent With Patient Time Spent with Patient: greater than 25 minutes Time Spent with Patient: Greater than 25 minutes spent on this patients care, greater than 50% of time spent counseling, educating, and coordinating care regarding the above mentioned plan. ICD10 Worksheet Patient Problems: Problems Problem Status Onset Intractable back pain Acute Low back pain Acute Peripheral vertigo Acute
[2018-05-06] MEDS ORDERED: predniSONE 20 MG TAB PO ONE (13:15)
[2018-05-06] MEDS: ATORVASTATIN CALCIUM 20 MG TAB PO SCH (21:14)
[2018-05-06] MEDS: ASPIRIN EC 81 MG TAB PO SCH (21:15)
[2018-05-06] MEDS: PATCH REMOVAL 1 EA PATCH TD SCH (21:29)
[2018-05-07] MEDS: CYCLOBENZAPRINE 10 MG TAB PO PRN ×2 (00:43→08:58)
[2018-05-07] MEDS: oxyCODONE IR 5 MG TAB PO PRN ×4 (00:43→21:13)
[2018-05-07] MEDS: ACETAMINOPHEN 500 MG TAB PO SCH ×3 (05:25→22:03)
[2018-05-07] MEDS: HYDROCHLOROTHIAZIDE 25 MG TAB PO SCH (08:58)
[2018-05-07] MEDS: amLODIPine BESYLATE 5 MG TAB PO SCH (08:58)
[2018-05-07] MEDS: SENNOSIDES/DOCUSATE SODIUM TAB PO SCH ×2 (08:58→21:13)
[2018-05-07] MEDS: CHOLECALCIFEROL VIT D3 2,000 UNITS TAB/CAP PO SCH (08:58)
[2018-05-07] MEDS: KETOROLAC 15 MG/1 ML SDV IVP PRN ×3 (09:01→21:13)
[2018-05-07] MEDS: POLYETHYLENE GLYCOL 3350 17 GM PKT PO PRN (09:01)
[2018-05-07] MEDS: LIDOCAINE 4%/MENTHOL 1% PATCH TD SCH (09:05)
[2018-05-07] MEDS ORDERED: METHOCARBAMOL 750 MG TAB PO ONE (12:30)
--- NOTE | 2018-05-07 15:09 | HOSPPROG ---
Hospitalist Progress Note Assessment/Plan: The patient is a 77-year-old male with PMH lumbar surgery, lumbar stenosis who was admitted for acute, severe intractable back pain with right thigh radiculopathy. He had an MRI c/w spinal stenosis and DJD disease at multiple levels He had an L3/4 ANSON and a R L3 nerve root block on 05/05 He does not want a NSG consult as he considers surgery as last resort Today he endorses worsening right hip pain There is no hx of trauma ASSESSMENT/PLAN: Acute lumbar back pain L3-L4 central canal stenosis Muscle spasms History of lumbar spine surgery Obesity CAD DJD HTN HLD Asthma Nocturnal hypoxia H/o prostate CA Insomnia Plan: -Start Gabapentin 300mg TID. -Start Robaxin, stop Flexeril -Valium as needed, has not received today -Pain mgmt -Hip XR -He agrees to NSG eval tomorrow if the med changes above dont help -PT/OT VTE prophylaxis: Lovenox. Code Status: Full code Subjective: significant right back pain. worse with movement Objective: Vital Signs Temp Pulse Resp BP Pulse Ox 36.6 C 74 16 133/93 H 94 05/07/18 08:00 05/07/18 08:00 05/07/18 08:00 05/07/18 08:00 05/07/18 08:00 Laboratory Results 05/05/18 04:40 05/05/18 04:40 05/06/18 05/07/18 05/08/18 05:59 05:59 05:59 Intake Total 179 300 Output Total 925 1300 Balance -746 -1000 - Physical Exam Constitutional: no apparent distress Eyes: PERRL, EOMI Ears, Nose, Mouth, Throat: moist mucous membranes, hearing normal Cardiovascular: regular rate and rhythym, No edema Respiratory: no respiratory distress, no rales or rhonchi, clear to auscultation Gastrointestinal: normoactive bowel sounds Skin: warm Neurologic: AAOx3 Psychiatric: interacting appropriately, not anxious, not encephalopathic Lymph, Heme, Immunologic: No petechiae ICD10 Worksheet Patient Problems: Problems Problem Status Onset Intractable back pain Acute Low back pain Acute Peripheral vertigo Acute
[2018-05-07] MEDS: METHOCARBAMOL 750 MG TAB PO SCH ×2 (15:23→21:13)
[2018-05-07] MEDS: GABAPENTIN 300 MG CAP PO SCH ×2 (15:23→21:13)
--- NOTE | 2018-05-07 16:19 | ASMTCMCOM ---
CM Note CM Note Notes: Pt still challenged by pain. Progress note indicates pt amenable to neurosurgery consult tomorrow if pain still not under control, pt ideally does not want surgery. Today PT rec HHC vs. SNF. CM to follow pt progress. Date Signed: 05/07/2018 04:15 PM Electronically Signed By:INES Broderick
[2018-05-07] MEDS: ASPIRIN EC 81 MG TAB PO SCH (21:13)
[2018-05-07] MEDS: ATORVASTATIN CALCIUM 20 MG TAB PO SCH (21:15)
[2018-05-07] MEDS: PATCH REMOVAL 1 EA PATCH TD SCH (21:16)
[2018-05-08] MEDS: oxyCODONE IR 5 MG TAB PO PRN ×3 (03:54→13:03)
[2018-05-08] MEDS: KETOROLAC 15 MG/1 ML SDV IVP PRN (03:57)
[2018-05-08] MEDS: ACETAMINOPHEN 500 MG TAB PO SCH ×3 (05:48→21:21)
[2018-05-08] MEDS: LIDOCAINE 4%/MENTHOL 1% PATCH TD SCH (09:22)
[2018-05-08] MEDS: GABAPENTIN 300 MG CAP PO SCH ×3 (09:22→21:25)
[2018-05-08] MEDS: SENNOSIDES/DOCUSATE SODIUM TAB PO SCH ×2 (09:23→21:24)
[2018-05-08] MEDS: amLODIPine BESYLATE 5 MG TAB PO SCH (09:23)
[2018-05-08] MEDS: METHOCARBAMOL 750 MG TAB PO SCH ×3 (09:23→21:25)
[2018-05-08] MEDS: HYDROCHLOROTHIAZIDE 25 MG TAB PO SCH (09:23)
[2018-05-08] MEDS: CHOLECALCIFEROL VIT D3 2,000 UNITS TAB/CAP PO SCH (09:24)
[2018-05-08] MEDS: MAGNESIUM HYDROXIDE 30 ML UDCUP PO PRN (09:27)
[2018-05-08] MEDS: methylPREDNISolone 4 MG TAB PO SCH ×4 (09:59→21:23)
--- NOTE | 2018-05-08 12:26 | HOSPPROG ---
Hospitalist Progress Note Assessment/Plan: The patient is a 77-year-old male with PMH lumbar surgery, lumbar stenosis who was admitted for acute, severe intractable back pain with right thigh radiculopathy. He had an MRI c/w spinal stenosis and DJD disease at multiple levels He had an L3/4 ANSON and a R L3 nerve root block on 05/05 Hip XR was unremarkable He does not want a NSG consult as he considers surgery as last resort Today Pain is better ASSESSMENT/PLAN: Acute lumbar back pain L3-L4 central canal stenosis Muscle spasms History of lumbar spine surgery Obesity CAD DJD HTN HLD Asthma Nocturnal hypoxia H/o prostate CA Insomnia Plan: Cont Gabapentin 300mg TID, could always increase Start Medrol Dose Pack Cont Robaxin He does not want NSG eval PT/OT BP Mgmt: no changes If better tomorrow, could consider d/c VTE prophylaxis: Lovenox. Code Status: Full code Subjective: pain is better. no overnight events. no cp or sob Objective: Vital Signs Temp Pulse Resp BP Pulse Ox 36.7 C 71 14 110/88 H 93 05/08/18 08:00 05/08/18 08:00 05/08/18 08:00 05/08/18 09:23 05/08/18 08:00 Laboratory Results 05/05/18 04:40 05/05/18 04:40 05/07/18 05/08/18 05/09/18 05:59 05:59 05:59 Intake Total 300 Output Total 1300 1000 Balance -1000 -1000 - Physical Exam Constitutional: no apparent distress Eyes: PERRL, EOMI Ears, Nose, Mouth, Throat: moist mucous membranes, hearing normal Cardiovascular: regular rate and rhythym Respiratory: no respiratory distress, no rales or rhonchi, clear to auscultation Gastrointestinal: normoactive bowel sounds, soft, non-tender abdomen Skin: warm Neurologic: AAOx3 Psychiatric: interacting appropriately, not anxious, not encephalopathic Lymph, Heme, Immunologic: No petechiae ICD10 Worksheet Patient Problems: Problems Problem Status Onset Intractable back pain Acute Low back pain Acute Peripheral vertigo Acute
--- NOTE | 2018-05-08 14:53 | ASMTCMCOM ---
CM Note CM Note Notes: Spoke with pt and about d/c options, they are adamant pt will go home and not interested in any rehab. Provided [facility] list. CM to follow. Date Signed: 05/08/2018 02:53 PM Electronically Signed By:INES Broderick
[2018-05-08] MEDS: ASPIRIN EC 81 MG TAB PO SCH (21:22)
[2018-05-08] MEDS: ATORVASTATIN CALCIUM 20 MG TAB PO SCH (21:23)
[2018-05-08] MEDS: PATCH REMOVAL 1 EA PATCH TD SCH (21:24)
[2018-05-09] MEDS: oxyCODONE IR 5 MG TAB PO PRN ×4 (03:01→18:45)
[2018-05-09] MEDS: ACETAMINOPHEN 500 MG TAB PO SCH ×3 (05:00→21:59)
[2018-05-09] MEDS: MAGNESIUM HYDROXIDE 30 ML UDCUP PO PRN (08:10)
[2018-05-09] MEDS: SENNOSIDES/DOCUSATE SODIUM TAB PO SCH ×2 (08:11→22:06)
[2018-05-09] MEDS: amLODIPine BESYLATE 5 MG TAB PO SCH (08:12)
[2018-05-09] MEDS: GABAPENTIN 300 MG CAP PO SCH ×3 (08:12→21:57)
[2018-05-09] MEDS: METHOCARBAMOL 750 MG TAB PO SCH ×3 (08:12→21:59)
[2018-05-09] MEDS: CHOLECALCIFEROL VIT D3 2,000 UNITS TAB/CAP PO SCH (08:12)
[2018-05-09] MEDS: HYDROCHLOROTHIAZIDE 25 MG TAB PO SCH (08:12)
[2018-05-09] MEDS: methylPREDNISolone 4 MG TAB PO SCH ×3 (08:13→18:45)
[2018-05-09] MEDS: LIDOCAINE 4%/MENTHOL 1% PATCH TD SCH (08:21)
[2018-05-09] MEDS ORDERED: GABAPENTIN 300 MG CAP PO ONE (10:52)
--- NOTE | 2018-05-09 13:46 | HOSPPROG ---
Hospitalist Progress Note Assessment/Plan: The patient is a 77-year-old male with PMH lumbar surgery, lumbar stenosis who was admitted for acute, severe intractable back pain with right thigh radiculopathy. He had an MRI c/w spinal stenosis and DJD disease at multiple levels He had an L3/4 ANSON and a R L3 nerve root block on 05/05 Hip XR was unremarkable He does not want a NSG consult as he considers surgery as last resort ASSESSMENT/PLAN: Acute lumbar back pain L3-L4 central canal stenosis Muscle spasms History of lumbar spine surgery Obesity CAD DJD HTN HLD Asthma Nocturnal hypoxia H/o prostate CA Insomnia Plan: Increase Gabapentin to 600mg TID cont Medrol Dose Pack Cont Robaxin He does not want NSG eval PT/OT BP Mgmt: no changes Would consider d/c tomorrow. This was d/w DARREN who is looking into [facility]. VTE prophylaxis: Lovenox. Code Status: Full code Subjective: no cp or sob. no n/v. still with low back and radiculopathy. Does not want NSG eval Objective: Vital Signs Temp Pulse Resp BP Pulse Ox 36.9 C 70 19 159/106 H 94 05/09/18 07:36 05/09/18 07:36 05/09/18 07:36 05/09/18 08:12 05/09/18 07:36 Laboratory Results 05/05/18 04:40 05/05/18 04:40 05/08/18 05/09/18 05/10/18 05:59 05:59 05:59 Intake Total 1350 Output Total 1000 1100 600 Balance -1000 250 -600 - Physical Exam Constitutional: no apparent distress, not in pain Eyes: PERRL, EOMI Ears, Nose, Mouth, Throat: moist mucous membranes, hearing normal Cardiovascular: regular rate and rhythym, No edema Respiratory: no respiratory distress, no rales or rhonchi, clear to auscultation Gastrointestinal: normoactive bowel sounds, soft, non-tender abdomen Skin: warm Neurologic: AAOx3 Psychiatric: interacting appropriately, not anxious, not encephalopathic ICD10 Worksheet Patient Problems: Problems Problem Status Onset Intractable back pain Acute Low back pain Acute Peripheral vertigo Acute
--- NOTE | 2018-05-09 15:57 | ASMTCMCOM ---
CM Note CM Note Notes: Pt still challenged by pain, still decline nsg eval. Pt to d/c tomorrow. Spoke with pt and [facility], they still decline SNF and report they want time to discuss HHC. Informed them CM will follow up tomorrow. Date Signed: 05/09/2018 03:57 PM Electronically Signed By:INES Broderick
[2018-05-09] MEDS: DIAZEPAM 5 MG TAB PO PRN (17:20)
[2018-05-09] MEDS ORDERED: methylPREDNISolone 4 MG TAB PO SCH (21:00)
[2018-05-09] MEDS: ATORVASTATIN CALCIUM 20 MG TAB PO SCH (21:59)
[2018-05-09] MEDS: ASPIRIN EC 81 MG TAB PO SCH (22:00)
[2018-05-09] MEDS: PATCH REMOVAL 1 EA PATCH TD SCH (22:06)
[2018-05-10] MEDS: oxyCODONE IR 5 MG TAB PO PRN ×2 (06:37→10:05)
[2018-05-10] MEDS: methylPREDNISolone 4 MG TAB PO SCH ×2 (06:37→14:35)
[2018-05-10] MEDS: ACETAMINOPHEN 500 MG TAB PO SCH ×3 (06:38→21:57)
[2018-05-10] MEDS: HYDROCHLOROTHIAZIDE 25 MG TAB PO SCH (07:56)
[2018-05-10] MEDS: GABAPENTIN 300 MG CAP PO SCH ×3 (07:57→21:56)
[2018-05-10] MEDS: CHOLECALCIFEROL VIT D3 2,000 UNITS TAB/CAP PO SCH (07:57)
[2018-05-10] MEDS: METHOCARBAMOL 750 MG TAB PO SCH ×3 (07:57→21:56)
[2018-05-10] MEDS: SENNOSIDES/DOCUSATE SODIUM TAB PO SCH ×2 (07:58→21:57)
[2018-05-10] MEDS: POLYETHYLENE GLYCOL 3350 17 GM PKT PO PRN (07:58)
[2018-05-10] MEDS: amLODIPine BESYLATE 5 MG TAB PO SCH (07:58)
[2018-05-10] MEDS: LIDOCAINE 4%/MENTHOL 1% PATCH TD SCH ×2 (07:59→10:23)
[2018-05-10] MEDS: DIAZEPAM 5 MG TAB PO PRN ×2 (11:51→21:55)
--- NOTE | 2018-05-10 11:55 | ASMTCMCOM ---
CM Note CM Note Notes: CM met with pt. Pt is declining PT due to on-going pain. He asked to be put in touch with Dr Johnston re a surgery consultation. This was done; Dr Johnston did consult with pt and pt is considering surgery. No CM needs have been identified at this time. CM will follow for changes. D/C Plan: Ind vs TBD Date Signed: 05/10/2018 11:55 AM Electronically Signed By:Rafaela Goldstein
[2018-05-10] MEDS: HYDROmorphONE/DILAUDID 1 MG/ML INJ IVP PRN (13:49)
--- NOTE | 2018-05-10 18:08 | HOSPPROG ---
Hospitalist Progress Note Assessment/Plan: * Severe lumbar stenosis -failed medical therapy and ANSON -d/w Dr. Johnston - patient desires OR in am * Obesity BMI 36 * h/o prostate cancer s/p XRT * HTN -norvasc, HCTZ Subjective: pain is still severe, no better, he would like to proceed with surgery Objective: Vital Signs Temp Pulse Resp BP Pulse Ox 36.6 C 87 14 166/90 H 94 05/10/18 16:00 05/10/18 16:00 05/10/18 16:00 05/10/18 16:00 05/10/18 16:00 Laboratory Results 05/05/18 04:40 05/05/18 04:40 05/09/18 05/10/18 05/11/18 05:59 05:59 05:59 Intake Total 1350 1000 Output Total 1100 1400 Balance 250 -[address] johnston regarding surgery tomorrow Lumbar MRI reviewed - severe L3L4 compression - Physical Exam Constitutional: no apparent distress, appears nourished, not in pain Cardiovascular: regular rate and rhythym, no murmur, rub, or gallop Respiratory: no respiratory distress, no rales or rhonchi, clear to auscultation Gastrointestinal: normoactive bowel sounds, soft, non-tender abdomen, no palpable masses Skin: no rashes or abrasions, no fluctuance, no induration Neurologic: AAOx3, sensation intact bilaterally Psychiatric: interacting appropriately, not anxious, not encephalopathic, thought process linear ICD10 Worksheet Patient Problems: Problems Problem Status Onset Peripheral vertigo Acute Low back pain Acute Intractable back pain Acute
[2018-05-10] MEDS: ATORVASTATIN CALCIUM 20 MG TAB PO SCH (21:55)
[2018-05-10] MEDS: PATCH REMOVAL 1 EA PATCH TD SCH (22:03)
--- NOTE | 2018-05-10 23:19 | GCON ---
REASON FOR CONSULTATION: I was told by the some of the [facility] staff that the patient had asked to see danika orzoco personally. I discussed this with Marlen Clemens, and she said it would be fine if I stop in to renan mendoza with the patient. HPI: The patient is a very pleasant 77-year-old gentleman with a history of a left L4-5 laminotomy f rom which he did quite well, and he has had over a week of severe back and right leg pain for which mery orozco has been hospitalized for the last 5 days. He is unable to walk. He does have severe right leg pa in, which prevents him completely from doing any sort of ambulating whatsoever without a walker. Of note, he has tried several different medications, including gabapentin, Tylenol, narcotic medication, and muscle relaxers, all of which have provided minimal if any benefit. He also had an L3-4 selecti ve nerve root block, which he reports did not provide him with any benefit. PHYSICAL EXAMINATION: He has a positive straight leg raise on the right and positive contralateral s traight leg raise on the left. He does report some subjective weakness on the right, but may be seco ndary to pain. He is at least 4+/5 in all modalities to the lower extremities. He has no gross sens ory deficits. IMAGING: I reviewed the images. The MRI demonstrates severe congenital stenosis throughout the lumb ar spine with a history of laminotomy at the left L4-5 level. He also has severe central stenosis at the L3-4 level with right paracentral disk herniation at this level causing severe compression of th e cauda equina. IMPRESSION: Severe right lower extremity radiculopathy, severe lumbar spinal stenosis. ASSESSMENT AND PLAN: I told the patient all the options. Certainly, they are wait for this to get b jie, modify his activities to not cause this pain, continue medication management, consideration of possible epidural again, or finally, an L3-4 lumbar laminectomy and decompression. I think the last is probably the best option for him based on the degree of stenosis, and, more importantly, the degr ee of the patient's symptoms. I watched him ambulate, and he is really unable to take even 1 step wi thout being in excruciating pain. We went over all risks, benefits and alternatives of the operation with the patient, which include, but are not limited to , paralysis, nerve damage, failure of s urgery to alleviate preoperative symptoms, instability requiring fusion, durotomy, infection, etc. O f note, we do not have upright x-rays for the patient; however, there is no indication on the MRI to suggest instability. I would like him to get an upright x-ray if that is possible at all today, alth ough he is in quite a bit of pain, and that may not be. In either case, the patient's BMI would real ly make a fusion much more difficult and substantially more involved, and we would certainly prefer t o avoid that. I will be in touch with the patient later today. He would like to take the day to mar, and we can move forward with an operation tomorrow if he would like. If there are any further questions, please do not hesitate to contact me by cellphone, . /[id number]/MODL
[2018-05-11] MEDS: oxyCODONE IR 5 MG TAB PO PRN ×4 (05:42→22:26)
[2018-05-11] MEDS: ACETAMINOPHEN 500 MG TAB PO SCH ×3 (05:44→22:01)
--- NOTE | 2018-05-11 06:26 | GPROG ---
I reviewed the x-rays of the patient. They do not demonstrate any evidence of instability. He appea rs to have a completely stable spine, so I think he would be a good candidate for a decompression as I mentioned. The patient since I last saw him decided to move forward with an operation, L3-4 rafi ctomy, decompression, microdiskectomy at the same level. We will move forward with surgery early angela orrow. All questions answered regarding the operation. /[id number]/MODL
[2018-05-11] MEDS ORDERED: methylPREDNISolone 4 MG TAB PO SCH (07:30)
[2018-05-11] MEDS: ATORVASTATIN CALCIUM 20 MG TAB PO SCH ×2 (08:04→22:02)
[2018-05-11] MEDS: CHOLECALCIFEROL VIT D3 2,000 UNITS TAB/CAP PO SCH (08:04)
[2018-05-11] MEDS: SENNOSIDES/DOCUSATE SODIUM TAB PO SCH ×2 (08:05→22:03)
[2018-05-11] MEDS: amLODIPine BESYLATE 5 MG TAB PO SCH (08:06)
[2018-05-11] MEDS: GABAPENTIN 300 MG CAP PO SCH ×3 (08:06→22:02)
[2018-05-11] MEDS: METHOCARBAMOL 750 MG TAB PO SCH ×3 (08:08→22:02)
[2018-05-11] MEDS: HYDROCHLOROTHIAZIDE 25 MG TAB PO SCH (08:08)
[2018-05-11] MEDS: HYDROmorphONE/DILAUDID 1 MG/ML INJ IVP PRN ×2 (08:14→14:49)
--- NOTE | 2018-05-11 08:47 | PDANEPAE ---
ANE History of Present Illness spinal stenosis for laminectomy/microdiscectomy ANE Past Medical History - Cardiovascular History Hx Hypertension: Yes Hx Arrhythmias: No Hx Chest Pain: No Hx Coronary Artery / Peripheral Vascular Disease: No Hx CHF / Valvular Disease: No Hx Palpitations: No - Pulmonary History Hx COPD: No Hx Asthma/Reactive Airway Disease: No Hx Recent Upper Respiratory Infection: No Hx Oxygen in Use at Home: No Hx Sleep Apnea: No Sleep Apnea Screening Result - Last Documented: Positive - Endocrine History Hx Diabetes: No Hypothyroid: No Hyperthyroid: No Obesity: yes, severe - Chronic Pain History Chronic Pain: No ANE Review of Systems Review of systems is: negative Review of Systems: - Exercise capacity Exercise capacity: limited by disability ANE Patient History - Allergies Allergies/Adverse Reactions: No Known Allergies Allergy (Verified 05/03/18 14:43) - Home Medications Home medications: home medication list seen and reviewed Home Medications: Albuterol [Proventil Inhaler HFA (*)] 1 - 2 puffs IH Q4HRS PRN 05/03/18 [Last Taken 05/03/18] Aspirin EC [Aspirin EC 81 mg (*)] 81 mg PO HS 05/03/18 [Last Taken 04/28/18] Cholecalciferol (Vitamin D3) [Vitamin D3] 2,000 unit PO DAILY 05/03/18 [Last Taken 04/30/18] Cyclobenzaprine [Cyclobenzaprine HCl] 5 mg PO HS 05/03/18 [Last Taken 05/02/18] Herbals/Supplements -Info Only 1 ea PO DAILY 05/03/18 [Last Taken Unknown] Hydrochlorothiazide [HCTZ (*)] 25 mg PO DAILY 05/03/18 [Last Taken 05/03/18] Ibuprofen [Motrin (*)] 400 mg PO BID 05/03/18 [Last Taken 05/03/18] Multivitamins [Multivitamin (*)] 1 each PO DAILY 05/03/18 [Last Taken 04/30/18] Hauula-3 Fatty Acids [Fish Oil 1000 mg (*)] 1,000 mg PO DAILY 05/03/18 [Last Taken 04/30/18] Simvastatin 40 mg PO HS 05/03/18 [Last Taken 05/02/18] Ubidecarenone [Co Q-10 200 mg] 200 mg PO DAILY 05/03/18 [Last Taken 04/30/18] Vitamin B Complex [Vitamin B Complex (OTC)] 1 each PO DAILY 05/03/18 [Last Taken 04/30/18] amLODIPine BESYLATE [Amlodipine Besylate] 10 mg PO DAILY 05/03/18 [Last Taken ] - Anes Hx Anes Hx: no prior problems - Smoking Hx Smoking Status: Former smoker - Alcohol Use Alcohol Use: Sober ANE Labs/Vital Signs - Labs Result Diagrams: 05/05/18 04:40 05/05/18 04:40 - Vital Signs Blood Pressure: 166/92 Heart Rate: 67 Respiratory Rate: 17 O2 Sat (%): 96 Height: 180.34 cm Weight: 117.93 kg ANE Physical Exam - Airway Neck exam: FROM Mallampati Score: Class 2 Mouth exam: normal dental/mouth exam - Pulmonary Pulmonary: no respiratory distress - Cardiovascular Cardiovascular: regular rate and rhythym - ASA Status ASA Status: III ANE Anesthesia Plan Anesthesia Plan: general endotracheal anesthesia
[2018-05-11] MEDS ORDERED: PROPOFOL/EMULSION 500 MG/50 ML BOTTLE IV ONE (08:48)
[2018-05-11] MEDS ORDERED: fentaNYL 100 MCG/2 ML INJ ONE ×3 (08:48→12:51)
[2018-05-11] MEDS ORDERED: LIDOCAINE 2% 5 ML SDV ONE (08:51)
[2018-05-11] MEDS ORDERED: ROCURONIUM 50 MG/5 ML VIAL ONE ×2 (08:52→10:13)
[2018-05-11] MEDS: LIDOCAINE 4%/MENTHOL 1% PATCH TD SCH (08:59)
[2018-05-11] MEDS ORDERED: LR 1,000 ML IV ONE (09:04)
[2018-05-11] MEDS ORDERED: BUPIVACAINE/EPI 0.5% 30 ML SDV ONE (09:19)
[2018-05-11] MEDS ORDERED: SURGIFLO MATRIX KIT WITH THROMBIN 8 ML TP ONE (09:19)
[2018-05-11] MEDS ORDERED: BACITRACIN 50,000 UNITS/10 ML SYR IRR ONE (09:20)
[2018-05-11] MEDS ORDERED: VANCOMYCIN 1 GM VIAL ONE (09:20)
[2018-05-11] MEDS ORDERED: TRANEXAMIC ACID 1,000 MG in NS 100 ML IV ONE (09:41)
[2018-05-11] MEDS ORDERED: ceFAZolin 2 GM/DEXTROSE 100 ML IV ONE (09:41)
[2018-05-11] MEDS ORDERED: MIDAZOLAM 2 MG/2 ML VIAL ONE (09:44)
[2018-05-11] MEDS ORDERED: CEFAZOLIN 1 GM/DEXTROSE/50 ML BAG IV ONE (10:06)
[2018-05-11] MEDS ORDERED: ceFAZolin 1 GM VIAL ONE ×2 (10:08→10:12)
[2018-05-11] MEDS ORDERED: SUGAMMADEX SODIUM 200 MG/2 ML VIAL IVP ONE (10:13)
[2018-05-11] MEDS ORDERED: HYDROmorphONE/DILAUDID 2 MG/ML INJ ONE (10:16)
--- NOTE | 2018-05-11 10:36 | POSTANESTH ---
Post Anesthetic Evaluation Cardiovascular Status: Normal, Stable Respiratory Status: Normal, Stable Level of Consciousness/Mental Status: Can Participate in Eval Pain Control: Adequate, Prn Tx Ordered Nausea/Vomiting Control: Adequate, Prn Tx Ordered Complications Possibly Related to Anesthesia: None Noted
[2018-05-11] MEDS ORDERED: oxyCODONE IR 5 MG TAB PO PRN (11:41)
[2018-05-11] MEDS ORDERED: DIAZEPAM 5 MG/ML 1 ML SYR IVP PRN (11:41)
[2018-05-11] MEDS ORDERED: ONDANSETRON 4 MG/2 ML VIAL IVP PRN (11:41)
[2018-05-11] MEDS ORDERED: NALOXONE HCL 0.4 MG/ML INJ IVP PRN (11:41)
[2018-05-11] MEDS ORDERED: PROMETHAZINE HCL 25 MG/ML INJ IVP PRN (11:41)
[2018-05-11] MEDS ORDERED: METOCLOPRAMIDE 10 MG/2 ML VIAL IVP PRN (11:41)
[2018-05-11] MEDS ORDERED: LR 500 ML IV PRN (11:41)
[2018-05-11] MEDS ORDERED: HYDROCODONE/APAP 5/325 TAB PO PRN (11:41)
[2018-05-11] MEDS ORDERED: HYDROmorphONE/DILAUDID 2 MG/ML INJ IVP PRN (11:41)
[2018-05-11] MEDS ORDERED: ACETAMINOPHEN 500 MG TAB PO PRN (11:41)
[2018-05-11] MEDS ORDERED: ALBUTEROL 3 ML DEYVIAL IH PRN (11:41)
[2018-05-11] MEDS: fentaNYL 100 MCG/2 ML INJ IVP PRN ×2 (12:52→13:01)
[2018-05-11] MEDS: DIAZEPAM 5 MG TAB PO PRN (13:38)
[2018-05-11] MEDS ORDERED: ceFAZolin 2 GM/DEXTROSE 100 ML IV SCH (14:00)
--- NOTE | 2018-05-11 15:57 | SUROPNOTE ---
[facility] Operative Report - Surgery Date: 05/11/18 Pre-operative Diagnosis: Lumbar Spinal Stenosis Post-operative Diagnosis: Same Procedure: L3-4 Open Lumbar Laminectomy and Decompression Rt L3/4 microdiscectomy Morbid obesity, BMI > 36 Use of intra-operative fluoroscopy Use of a surgical microscope Surgeon: Ramon Johnston MD Dust Collector Operator: Sravanthi Ludwig Anesthesia: General endotracheal anesthesia Findings: As expected lumbar spinal stenosis Estimated Blood Loss: 100mL Drains: Hemovac Specimens: None Complications: None Condition: Transferred to PACU in stable condition. Implants: None Indications: This patient was seen and examined by me and diagnosed with lumbar spinal stenosis. He was also noted to have a right L3/4 herniated disc. I have explained all options of treatment for the patient, and the patient has elected to proceed with operative management. I have explained all risks, benefits, and alternatives of the proposed procedure. The risks that we have discussed include , blindness, nerve damage, infection, dural tear, failure of surgery to alleviate pre-operative symptoms, and possible need for further operation. In addition to the aforementioned procedure, I discussed with the patient that other procedures may be indicated during the course of surgery that would be considered in the patients best interest. The patient expressed understanding of this. Pre-operative: The proposed incision site was marked in the pre-operative holding area by me. The patient was then taken to the operating room in stable condition. Following smooth induction of general anesthesia, the patient was positioned prone on a Mckinley table in mild reverse Trendelenburg with all down surfaces well-padded. The patient was then prepped and draped in the usual sterile fashion. Pre- operative antibiotics were administered within one hour of the incision. A surgical timeout was performed, and all parties involved in the procedure were in agreement on the correct patient, location, and procedure to be performed. Approach: The proposed L3/4 levels were identified using C-arm fluoroscopy and the skin was marked for the proposed incision. The skin was then incised sharply through the dermis. Electrocautery was used to dissect the subdermal fat layer down to fascia and to coagulate bleeding vessels. Secondary pause: Two Genevieve clamps were then placed on the spinous processes at both ends of the dissection. A lateral radiograph to identify the associated anatomy, and a small piece of bone from the associated spinous processes was removed for identification. A secondary spinal pause was then performed, and the level was confirmed with all parties participating in the operation. These were noted to be above and below the L3 spinous process. Decompression: All paraspinal muscles were dissected sub-periostally from the spinous processes and laminae. The dissection was then carried out to include the extent of decompression that was determined before surgery, with care being taken to preserve all facet capsules. The lateral pars was identified for all levels to be included in the proposed decompression. Using a combination of rongeur, sailaja, and Kerrison rongeurs, the spinous processes and laminae were removed at all levels to the subarticular lateral recess. Care was taken to leave a minimum of 8mm of bone from the lateral border of the pars at each decompressed level. The ligamentum flavum was resected at all levels. Additional care was taken to adequately decompress the lateral recess at all levels. At the cephalad and caudal vertebrae of the extent of the decompression , approximately 50% of the lamina was removed; at the remaining levels, a complete laminectomy was performed. At this time, a ball probe was used to probe all foraminae at the affected levels. Where necessary, a small Kerrison rongeur was used to decompress remaining bone and soft tissue so that all nerve roots would traverse freely through the foraminae. In total, the entire lamina of L4, and the caudal 90% of L3 were removed. Of note, a substantial amount of scar tissue was encountered at the left L4 level caudally. The patients obesity and the scar tissue present made the operation substantially more difficult technically, and an additional 45 minutes were spent during the dissection and decompression for this reason. Microdiscectomy: Using a dural retractor, the dural sac was retracted medially to allow for visualization of the L3/4 disc space, right of midline. Any extruded disc fragments were excised at this time. Using a #11 blade on a long handle, a cruciate annulotomy was performed. A nerve hook was then used to probe the disc space and nucleus pulposus. A disc punch was passed into the disc space, and any loose or easily freed disc fragments were removed. This was done until no further loose fragments were produced. Any bleeding epidural vessels were coagulated using bipolar cautery and all dural retractors were removed. Closure: The surgical field was then copiously irrigated with sterile saline. Vancomycin powder was then applied to the surgical field. A small drain was placed deep to the fascia and brought out of the skin superior and laterally. The drain was then sewn to skin. #1 braided and absorbable interrupted sutures were used to repair the fascia. Then 2-0 monofilament interrupted sutures were used to repair the dermal layer, and a separate 3-0 monofilament suture was used to repair the subcutaneous layer in a running fashion. All sutures used were absorbable. Topical adhesive was then applied to the skin and allowed to dry. A sterile island dressing was applied over the surgical incision. A surgical count was performed before initiation of closure and following the procedure, and all were correct. I was present for all critical portions of the procedure. Neuromonitoring: SSEP, MEP and EMG were used throughout the case from incision until the beginning of closure. There were no significant changes throughout the case, and SSEP signals were at their pre-surgical baseline levels before surgical closure was initiated. Surgical microscope use: A surgical microscope was utilized throughout the decompressive portion of this case. This was deemed necessary for safe and accurate surgical decompression of affected nerve roots. assistant site manager: A surgical corsetier was used throughout the case, and deemed necessary for safe neural retraction, hemostasis, and suction. Recovery: The patient was extubated uneventfully in the operating room. The patient was taken to the recovery room in stable condition. Sequential compression devices for VTE prophylaxis were applied to the patients lower extremities, and were ordered to be used while the patient was non-ambulatory. Chemical VTE prophylaxis was considered to be contraindicated for this patient because of the risk of bleeding near the epidural space. 22 modifier: As mentioned above, the patients obesity (BMI over 36) and scar tissue made the operation significantly more technically challenging. This prolonged the operation a minimum of 45 minutes for safe decompression. A 22 modifier will be added to the case. Luis Johnston MD
[2018-05-11] MEDS: ceFAZolin 2 GM/DEXTROSE 100 ML IV SCH (17:13)
--- NOTE | 2018-05-11 18:05 | HOSPPROG ---
Hospitalist Progress Note Assessment/Plan: * Severe lumbar stenosis due to herniated disk -failed medical therapy and ANSON -s/p microdiskectomy with Dr. Johnston * Obesity BMI 36 * h/o prostate cancer s/p XRT * HTN -norvasc, HCTZ Subjective: Doing well post surgery Objective: Vital Signs Temp Pulse Resp BP Pulse Ox 36.9 C 77 17 133/97 H 97 05/11/18 17:06 05/11/18 17:06 05/11/18 17:06 05/11/18 17:06 05/11/18 17:06 Laboratory Results 05/05/18 04:40 05/05/18 04:40 05/10/18 05/11/18 05/12/18 05:59 05:59 05:59 Intake Total 1000 1020 Output Total 1400 975 925 Balance -400 -975 95 - Physical Exam Constitutional: no apparent distress, appears nourished, not in pain Cardiovascular: regular rate and rhythym, no murmur, rub, or gallop Respiratory: no respiratory distress, no rales or rhonchi, clear to auscultation Gastrointestinal: normoactive bowel sounds, soft, non-tender abdomen, no palpable masses Skin: no rashes or abrasions, no fluctuance, no induration Neurologic: AAOx3, sensation intact bilaterally Psychiatric: interacting appropriately, not anxious, not encephalopathic, thought process linear ICD10 Worksheet Patient Problems: Problems Problem Status Onset Peripheral vertigo Acute Low back pain Acute Intractable back pain Acute
[2018-05-11] MEDS: PATCH REMOVAL 1 EA PATCH TD SCH (22:18)
[2018-05-12] MEDS: ceFAZolin 2 GM/DEXTROSE 100 ML IV SCH (01:58)
[2018-05-12 05:22] LABS: PLATELET COUNT 192 10^3/uL (150-400)
[2018-05-12] MEDS: ACETAMINOPHEN 500 MG TAB PO SCH ×3 (05:58→21:23)
[2018-05-12] MEDS: DIAZEPAM 5 MG TAB PO PRN (05:59)
[2018-05-12] MEDS: oxyCODONE IR 5 MG TAB PO PRN ×3 (05:59→17:32)
[2018-05-12] MEDS ORDERED: methylPREDNISolone 4 MG TAB PO SCH (07:30)
[2018-05-12] MEDS: METHOCARBAMOL 750 MG TAB PO SCH ×3 (10:03→21:25)
[2018-05-12] MEDS: amLODIPine BESYLATE 5 MG TAB PO SCH (10:03)
[2018-05-12] MEDS: GABAPENTIN 300 MG CAP PO SCH ×3 (10:03→21:24)
[2018-05-12] MEDS: HYDROCHLOROTHIAZIDE 25 MG TAB PO SCH (10:06)
[2018-05-12] MEDS: SENNOSIDES/DOCUSATE SODIUM TAB PO SCH ×2 (10:06→21:25)
[2018-05-12] MEDS: CHOLECALCIFEROL VIT D3 2,000 UNITS TAB/CAP PO SCH (10:06)
[2018-05-12] MEDS: LIDOCAINE 4%/MENTHOL 1% PATCH TD SCH (10:08)
--- NOTE | 2018-05-12 13:33 | GPROG ---
I saw and evaluated the patient this morning at his bedside. Overall, he is doing quite well. He re ports marked relief of his right lower extremity pain that he was having before the operation. PHYSICAL EXAM: His drain was disconnected when I evaluated him this morning. I reconnected it; contreras paz, the tubing appears to be clotted off. Lower extremities are grossly intact, limited by pain and positioning, but the patient feels full strength. The dressing is clean, dry, intact and left in pl hector. IMPRESSION: Postoperative day 1, status post L3-4 lumbar decompression with microdiskectomy. ASSESSMENT AND PLAN: Moving forward, the patient may be discharged from my perspective at any point. I would like him to wear a brace, which has been provided by the hospital at the bedside, whenever he is up and around, walking for greater distances than to the bathroom. He should see me in 2 weeks ' time to check the incision. He is not to bend, lift greater than 10 pounds, or twist about the lum bar spine in the meantime. If he does not have it already, the patient may be given my direct patien t line at [phone]. Again, thank you very much for allowing me to care for this patient. Please do not hesitate to reach out with me if any further issues arise. From my perspective, the patient can be discharged wheneve r he meets medical criteria and progresses with physical therapy. /[id number]/MODL
[2018-05-12] MEDS ORDERED: HYDROmorphONE/DILAUDID 1 MG/ML INJ IVP PRN (15:57)
--- NOTE | 2018-05-12 16:32 | HOSPPROG ---
Hospitalist Progress Note Assessment/Plan: * Severe lumbar stenosis due to herniated disk -failed medical therapy and ANSON -s/p microdiskectomy with Dr. Johnston * Obesity BMI 36 * h/o prostate cancer s/p XRT * HTN -norvasc, HCTZ Dispo: Likely tomorrow pending pain control Subjective: Patient reports continued improved back pain s/p surgery Objective: Vital Signs Temp Pulse Resp BP Pulse Ox 36.8 C 78 16 151/79 H 93 05/12/18 12:00 05/12/18 12:00 05/12/18 12:00 05/12/18 12:00 05/12/18 12:00 Laboratory Results 05/12/18 05:13 05/12/18 05:13 05/11/18 05/12/18 05/13/18 05:59 05:59 05:59 Intake Total 1020 Output Total 975 4484 500 Balance -975 -865 -500 - Physical Exam Constitutional: no apparent distress Eyes: PERRL Cardiovascular: regular rate and rhythym Respiratory: no respiratory distress Gastrointestinal: soft, non-tender abdomen Skin: warm Musculoskeletal: pain with ROM Neurologic: AAOx3 Psychiatric: interacting appropriately ICD10 Worksheet Patient Problems: Problems Problem Status Onset Intractable back pain Acute Low back pain Acute Peripheral vertigo Acute
[2018-05-12] MEDS: ATORVASTATIN CALCIUM 20 MG TAB PO SCH (21:24)
[2018-05-12] MEDS: PATCH REMOVAL 1 EA PATCH TD SCH (21:26)
[2018-05-13] MEDS: ACETAMINOPHEN 500 MG TAB PO SCH ×2 (06:00→16:13)
[2018-05-13] MEDS ORDERED: methylPREDNISolone 4 MG TAB PO SCH (07:30)
[2018-05-13] MEDS: SENNOSIDES/DOCUSATE SODIUM TAB PO SCH (08:52)
[2018-05-13] MEDS: amLODIPine BESYLATE 5 MG TAB PO SCH (08:52)
[2018-05-13] MEDS: HYDROCHLOROTHIAZIDE 25 MG TAB PO SCH (08:53)
[2018-05-13] MEDS: CHOLECALCIFEROL VIT D3 2,000 UNITS TAB/CAP PO SCH (08:53)
[2018-05-13] MEDS: GABAPENTIN 300 MG CAP PO SCH ×2 (08:53→16:10)
[2018-05-13] MEDS: METHOCARBAMOL 750 MG TAB PO SCH ×2 (08:53→16:10)
[2018-05-13] MEDS: LIDOCAINE 4%/MENTHOL 1% PATCH TD SCH (09:05)
[2018-05-13] MEDS: MAGNESIUM HYDROXIDE 30 ML UDCUP PO PRN (09:12)
--- NOTE | 2018-05-13 10:40 | GPROG ---
I saw and evaluated the patient this morning. Overall, he is doing quite well. Dressing had a littl e bit of drainage on it but is acceptable. He reports complete relief of his right lower extremity p ain after the operation. He has been ambulating on the unit quite well. ASSESSMENT/PLAN: Moving forward, from my perspective, the patient can be discharged whenever he amandeep rs with physical therapy, from which I believe will be more than likely today. I would like to see mery villatoro in 2 weeks' time /[id number]/MODL
[2018-05-13] MEDS: oxyCODONE IR 5 MG TAB PO PRN (13:06)
--- NOTE | 2018-05-13 14:00 | PDIAF ---
- Diagnosis Code Status: Full Code - Medication Management Discharge Medications: electronically signed and located in the Home Medication List. - Orders Services needed: Home Care, Physical Therapy Home Care Face to Face: I certify that this patient was under my care and that I had the required [id number] encounter meeting the encounter requirements on the discharge day. My findings support the fact that the patient is homebound as defined in Home Care Face to Face Continued: CMS Chapter 7 Medicare Benefits Manual 30.1.1 , The condition of the patient is such that there exists a normal inability to leave home and consequently, leaving home would require a considerable and taxing effort. - Follow Up Care Current Providers and Referrals: Ramon Johnston MD [Medical Doctor] - follow up in 2 weeks (to see Dr. Johnston 2 weeks after surgery. No bending, lifting, or twisting for the next 6 weeks.) Luiza Giraldo MD [Primary Care Provider] - As per Instructions
[2018-05-13 15:45] VITALS: BP 152/82
--- NOTE | 2018-05-13 15:56 | ASMTLACE ---
LACE Length of stay for Answers: 7-13 days current admission Acuity / Level of Answers: Yes Care: Did the patient have an inpatient admission? Comorbidities - select Answers: Coronary Artery Disease all that apply Opioid dependence / Chronic pain Other Notes: Diverticulitis; HTN; HL D # of Emergency department Answers: 1-2 visits in the last 6 months Score: 16 Date Signed: 05/13/2018 03:55 PM Electronically Signed By:INES Broderick
--- NOTE | 2018-05-13 15:57 | ASMTCMCOM ---
CM Note CM Note Notes: Pt medically stable for d/c with [facility] PT. Orders to be obtained via [employer]. Pt address/phone verified. Date Signed: 05/13/2018 03:56 PM Electronically Signed By:INES Broderick
--- NOTE | 2018-05-13 16:17 | PDDCSUM ---
Discharge Summary Discharge Summary: Date of Admission: 05/04/2018 Date of Discharge: 05/13/2018 Consults: Orthopaedics Procedures: L3-4 Open Lumbar Laminectomy and Decompression, Rt L3/4 microdiscectomy Followup: PCP, Ortho Hospital Course Problem List: * Severe lumbar stenosis due to herniated disk -failed medical therapy and ANSON -s/p L3-4 Open Lumbar Laminectomy and Decompression, Rt L3/[address] Johnston -Pain control PRN -Back brace per Ortho * Obesity BMI 36 * h/o prostate cancer s/p XRT * HTN -Continue home norvasc, HCTZ Time spent on discharge was >35 minutes with >50% of time spent on patient education and counseling.
--- NOTE | 2018-05-14 12:13 | ASDISCHSUM ---
Discharge Information Plan Status:Home with Home Health Medically Cleared to Leave: Discharge Date:05/13/2018 04:43 PM CM D/C Disposition: ADT D/C Disposition:Home, Routine, Self-Care Projected Discharge Date:05/13/2018 11:00 AM Transportation at D/C: Discharge Delay Reason: Follow-Up Date:05/13/2018 11:00 AM Discharge Slot: Final Diagnosis: Placement Information Referral Type:*Home Health Care Services Referral ID:[id number] Provider Name:[facility] Address 1:[address] Address 2: City:[place] Selection Factors: State:[place] Patient Contact Information Contact Name:TESS Relationship: Address:[address] City:[place] Alternate Phone: State/Zip Code:[place] [address] Email: Financial Information Financial Class:Medicare Primary Plan Desc:MEDICARE INPATIENT Primary Plan Number:[id number] Secondary Plan Desc:Patients Know Best MD Secondary Plan Number:[id number] Assessment Information [facility] CM Progress Note CM Note CM Note Notes: Pt is a 77 yo M presents with acute right low back pain. Has history of HTN &HLD. PT/OT ordered, evals pending. Pt lives in [place] with . CM to follow to determine discharge needs. Plan: TBD Date Signed: 05/04/2018 01:09 PM Electronically Signed By:ELI Mcfarland LACE LACKaty Length of stay for Answers: 7-13 days current admission Acuity / Level of Answers: Yes Care: Did the patient have an inpatient admission? Comorbidities - select Answers: Coronary Artery Disease all that apply Opioid dependence / Chronic pain Other Notes: Diverticulitis; HTN; HL D # of Emergency department Answers: 1-2 visits in the last 6 months Score: 16 Date Signed: 05/13/2018 03:55 PM Electronically Signed By:INES Broderick [facility] CM Progress Note CM Note CM Note Notes: Pt still challenged by pain. Progress note indicates pt amenable to neurosurgery consult tomorrow if pain still not under control, pt ideally does not want surgery. Today PT rec [facility] vs. SNF. CM to follow pt progress. Date Signed: 05/07/2018 04:15 PM Electronically Signed By:INES Broderick [facility] CM Progress Note CM Note CM Note Notes: Spoke with pt and about d/c options, they are adamant pt will go home and not interested in any rehab. Provided [facility] list. CM to follow. Date Signed: 05/08/2018 02:53 PM Electronically Signed By:INES Broderick [facility] CM Progress Note CM Note CM Note Notes: Pt still challenged by pain, still decline nsg eval. Pt to d/c tomorrow. Spoke with pt and [facility], they still decline SNF and report they want time to discuss HHC. Informed them CM will follow up tomorrow. Date Signed: 05/09/2018 03:57 PM Electronically Signed By:INES Broderick [facility] CM Progress Note CM Note CM Note Notes: CM met with pt. Pt is declining PT due to on-going pain. He asked to be put in touch with Dr Johnston re a surgery consultation. This was done; Dr Johnston did consult with pt and pt is considering surgery. No CM needs have been identified at this time. CM will follow for changes. D/C Plan: Ind vs TBD Date Signed: 05/10/2018 11:55 AM Electronically Signed By:Rafaela Goldstein [facility] CM Progress Note CM Note CM Note Notes: Pt medically stable for d/c with [facility] PT. Orders to be obtained via [employer]. Pt address/phone verified. Date Signed: 05/13/2018 03:56 PM Electronically Signed By:INES Broderick Intervention Information Intervention Type:*IM-Signed Date of Service:05/13/2018 03:34 PM Patient Type:Inpatient Staff Member:Chika Dumont Hours: Discipline: Severity: Comment:
== END 2018-05-13 16:43 | disposition home health service (06) | DRG 520 ==
LOC: EDUNIT# → F3N 17:55 → OBSVTOIN 05-04 14:47
PROVIDERS: ADMIT Internal Medicine; ATTEND Internal Medicine
PROC: 00NY0ZZ Release Lumbar Spinal Cord, Open Approach (ICD-10-PCS; principal; 2018-05-11 10:00)
PROC: 4A1004G Monitoring of Central Nervous Electrical Activity, Intraoperative, Open Approach (ICD-10-PCS; principal; 2018-05-11 10:00)
PROC: 8E0WXBZ Computer Assisted Procedure of Trunk Region (ICD-10-PCS; principal; 2018-05-11 10:00)
DX: M48.061 Spinal stenosis, lumbar region without neurogenic claudication (principal); M51.16 Intervertebral disc disorders with radiculopathy, lumbar region; I10 Essential (primary) hypertension; E78.5 Hyperlipidemia, unspecified; E66.9 Obesity, unspecified; Z68.36 Body mass index [BMI] 36.0-36.9, adult; I25.10 Atherosclerotic heart disease of native coronary artery without angina pectoris; J45.909 Unspecified asthma, uncomplicated; G47.33 Obstructive sleep apnea (adult) (pediatric); Z85.46 Personal history of malignant neoplasm of prostate
CPT/HCPCS: 96374; 97116-GP; 97161-GP; 97164-GP; 97166-GO; 97530-GO; 97530-GP; 97535-GO; G0378; J0690; J1100; J1170; J1630; J1885; J2250; J2704; J3010; J3301; J3360; J3370; J7512; Q9967

== ENCOUNTER 2018-08-23 08:15 | Emergency (ER) | payer OTHER ==
[2018-08-23] MEDS ORDERED: valACYclovir 500 MG TAB PO ONE (08:58)
--- NOTE | 2018-08-23 09:01 | EDPHY ---
HPI/HX/ROS/PE/MDM Narrative: CHIEF COMPLAINT: Rash HISTORY OF PRESENT ILLNESS: The patient is a 78 y/o male with a history of diverticulitis complaining of a full body rash. About 2 weeks ago, his was diagnosed with shingles on her lower buttocks. Years ago, patient was interested in obtaining a shingles vaccination, but felt certainly that he had not had chickenpox when he was younger. He was referred to an television news photographer to did demonstrate lack of serological evidence of prior chickenpox. At that time he was told to avoid individuals with chickenpox and individuals with shingles. On Saturday, 4 days ago, he developed a fever and night sweats. On Saturday, he began experiencing pain in the left lower abdomen, similar to previous diverticulitis. He was seen at urgent care and sent home on two antibiotics for a recurrence of diverticulitis. This morning, he developed a full body rash consistent with chickenpox. The patient denies cough, respiratory complaints, chest pain, or any other associated symptoms. He denies taking immunosuppressants. He denies recent international travel. No chest pain, shortness of breath, palpitations, vomiting, diarrhea, urinary complaints, headache, lightheadedness. REVIEW OF SYSTEMS: A comprehensive 10 system review of systems is otherwise negative aside from elements mentioned in the history of present illness and medical decision making PAST MEDICAL HISTORY: Diverticulitis SOCIAL HISTORY: at bedside, lives in [place], retired VITAL SIGNS: Reviewed by me GENERAL: Well-developed, well-nourished, resting comfortably in no respiratory distress. No respiratory distress. Not hypoxic. HEENT: Atraumatic. Eyes: No icterus, no injection. No conjunctival injection. Mouth: moist mucous membranes. No erythema or lesions. Neck: supple with no adenopathy. LUNGS: Clear to auscultation bilaterally, no wheezes, rhonchi or rales. CARDIAC: Regular rate and rhythm, no rubs, murmurs or gallops. ABDOMEN: Soft, nontender, nondistended, bowel sounds normal. BACK: No CVA tenderness. EXTREMITIES: No trauma. No edema. Range of motion is normal throughout. NEURO: Alert and oriented, grossly nonfocal. SKIN: Vesicular rash concentrated in the head, arms, and torso and present in the legs. Warm and dry. PSYCHIATRIC: Normal mentation, no agitation. ED Course: The patient presents with full body rash. He couple weeks ago, his had shingles. A few days ago, he developed fever and chills. Yesterday he began experiencing abdominal pain and was discharged from urgent care with antibiotics for possible recurrence of diverticulitis. This morning, he developed a vesicular rash, concentrated to the head, arms, and torso and present but less concentrated to the legs. On exam the rash is consistent with chickenpox. He denies any respiratory complaints. He has no headache, meningitis signs, confusion, or on their signs or symptoms of encephalitis or meningioencephalitis. I discussed the situation with Dr. Vivar from infectious disease. This is a 78 -year-old male with chickenpox. Currently he does not seem to be having any significant respiratory complications, however, today is day [address] Sudhir Vivar recommended Valtrex. He will follow up with the patient early next week. Strict return precautions have been given. including the importance of staying well hydrated, Tylenol or ibuprofen if needed for fevers, calamine lotion for itching, avoid on immunized individuals, avoid 's and individuals , and return immediately or any cough or difficulty breathing. The patient agrees to this course of action. The patient is supposed to be leaving on a trip on September 01. I have a call to infectious disease regarding his ability to recover in time for the trip. We will call to inform the patient of the recommendation from infectious disease. Home phone : [phone]. cell: [phone]. MDM: Differential diagnoses for the patient's symptom complex was considered including but not limited to chickenpox, disseminated shingles, allergic reaction to antibiotics, varicella pneumonia. - Data Points Medications Given: Discontinued Medications Valacyclovir HCl (Valtrex) 1,000 mg PO EDNOW ONE Stop: 08/23/18 08:59 Last Admin: 08/23/18 09:05 Dose: 1,000 mg General Time Seen by Provider: 08/23/18 08:40 Initial Vital Signs: Initial Vital Signs Temperature (C) 36.7 C 08/23/18 08:21 Heart Rate 78 08/23/18 08:21 Respiratory Rate 16 08/23/18 08:21 Blood Pressure 107/89 H 08/23/18 08:21 O2 Sat (%) 97 08/23/18 08:21 O2 Delivery Mode Room Air Allergies/Adverse Reactions: No Known Allergies Allergy (Verified 05/03/18 14:43) Home Medications: Medication Instructions Recorded Albuterol [Proventil Inhaler HFA 1 - 2 puffs IH Q4HRS PRN 05/03/18 (*)] Aspirin EC [Aspirin EC 81 mg (*)] 81 mg PO HS 05/03/18 Cholecalciferol (Vitamin D3) 2,000 unit PO DAILY 05/03/18 [Vitamin D3] Cyclobenzaprine [Cyclobenzaprine 5 mg PO HS 05/03/18 HCl] Herbals/Supplements -Info Only 1 ea PO DAILY 05/03/18 Hydrochlorothiazide [HCTZ (*)] 25 mg PO DAILY 05/03/18 Ibuprofen [Motrin (*)] 400 mg PO BID 05/03/18 Multivitamins [Multivitamin (*)] 1 each PO DAILY 05/03/18 [place]-3 Fatty Acids [Fish Oil 1000 1,000 mg PO DAILY 05/03/18 mg (*)] Simvastatin 40 mg PO HS 05/03/18 Ubidecarenone [Co Q-10 200 mg] 200 mg PO DAILY 05/03/18 Vitamin B Complex [Vitamin B 1 each PO DAILY 05/03/18 Complex (OTC)] amLODIPine BESYLATE [Amlodipine 10 mg PO DAILY 05/03/18 Besylate] Gabapentin [Neurontin 300 MG (*)] 600 mg PO TID #60 cap 05/13/18 Lidocaine 4%/Menthol 1% [Icy Hot 1 patch TD DAILY patch 05/13/18 Lidocaine/Menthol 4%/1% Patch (*)] Polyethylene Glycol 3350 [Miralax 17 gm PO DAILY PRN pkt 05/13/18 17 gm (*)] Sennosides/Docusate Sodium 1 - 2 tab PO BID tab 05/13/18 [Senokot-S] oxyCODONE IR [Oxycodone Ir (*)] 5 - 10 mg PO Q3HRS PRN #30 tab 05/13/18 valACYclovir [Valtrex (*)] 1,000 mg PO TID 5 Days tab 08/23/18 Departure - Departure Disposition: Home, Routine, Self-Care Clinical Impression: Chicken pox Qualifiers: Varicella complications: without complication Qualified Code(s): B01.9 - Varicella without complication Condition: Good Instructions: Valacyclovir (By mouth), Chickenpox (ED) Additional Instructions: 1. Dr. Vivar, infectious disease specialist, or someone from his practice will call you tomorrow to schedule a follow-up appointment next week. 2. You have been prescribed Valtrex. Please take as directed. 3. Please use Tylenol and ibuprofen, alternating if needed, for pain and fever. To alternate these medications, take the recommended dose of one and then a few hours later, take the recommended dose of the other. Always take ibuprofen with some food. 4. Please drink plenty of fluids and rest. 5. Please discontinue taking the antibiotics prescribed yesterday. 6. Pay close attention to your breathing. Return to the emergency department if you experience difficulty breathing, cough, or any other worsening of condition. Complications of chickenpox in elderly individuals include pneumonia or meningitis. Referrals: Geetha Abraham MD [Non Staff Provider (MD)] - As per Instructions Sudhir Vivar MD [Medical Doctor] - As per Instructions Stand Alone Forms: Airline Excuse Prescriptions: valACYclovir [Valtrex (*)] 1,000 mg PO TID 5 Days tab Report Scribed for: Katherine White Report Scribed by: Quita Raymundo Date of Report: 08/23/18 Time of Report: 09:11 Physician Review and Approval Statement: Portions of this note were transcribed by a medical lead. I personally performed a history, physical exam, medical decision making, and confirmed accuracy of information the transcribed note.
[2018-08-23 09:30] VITALS: BP 132/83
== END 2018-08-23 09:30 | disposition home or self-care (01) ==
DX: B01.9 Varicella without complication (principal); K57.92 Diverticulitis of intestine, part unspecified, without perforation or abscess without bleeding